=== PATIENT | female | born 1940 | race Caucasian/White ===

== ENCOUNTER → 2018-01-15 07:34 | Outpatient (CLI) | payer OTHER, SELFPAY ==
[2018-01-15 10:23] LABS: Cholesterol 196 mg/dL (140-199); HDL Cholesterol 45 mg/dL (40-60); LDL Cholesterol Calculated 116 mg/dL (<100); Triglycerides 174 mg/dL (35-150)
[2018-01-15 10:26] LABS: Thyroid Stimulating Hormone 3.01 uIU/mL (0.47-4.68)
[2018-01-15 10:42] LABS: Hematocrit 37.7 % (36-46); Mean Corpuscular HGB Conc 34.5 % (30-36); Mean Corpuscular Hemoglobin 31.1 PG (26-34); Mean Corpuscular Volume 90.2 fL (80-100); Red Blood Cell Count 4.18 X10^6/uL (4.0-5.2); White Blood Cell Count 5.3 X10^3/uL (4.5-11.0)
[2018-01-15 10:43] LABS: Add Manual Diff / Slide Review NO; Basophils Percent Auto 0.9 % (0-2); Eosinophils Percent Auto 2.2 % (2-4); Lymphocytes Percent Auto 34.3 % (25-40); Monocytes Percent Auto 9.7 % (3-14); Neutrophils Absolute Auto 2800 /uL (3000-5900); Neutrophils Percent Auto 52.9 % (50-75); Platelet Count 299 X10^3/uL (150-400); Red Cell Distribution Width 12.9 % (11.6-14.8)
[2018-01-15 14:12] LABS: Alanine Aminotransferase 29 IU/L (9-52); Albumin 4.2 g/dL (3.5-5.0); Albumin Globulin Ratio 1.4 (1.0-2.8); Alkaline Phosphatase 64 U/L (38-126); Aspartate Aminotransferase 32 IU/L (14-36); BUN Creatinine Ratio 22.5 (6-22); Bilirubin Total 0.4 mg/dL (0.2-1.3); Blood Urea Nitrogen 18 mg/dL (7-17); Calcium 9.3 mg/dL (8.4-10.2); Carbon Dioxide 32 mmol/L (22-32); Chloride 99 mmol/L (98-107); Estimated Glomerular Filt Rate > 60.0 mL/min (>60); Globulin 3.1 g/dL (1.7-4.1); Glucose 92 mg/dL (80-110); HEMOLYSIS < 15 (0-50); Potassium 4.8 mmol/L (3.4-5.1); Sodium 139 mmol/L (137-145); Total Protein 7.3 g/dL (6.3-8.2)
== END ==
PROVIDERS: PCP Internal Medicine; Visit Provider Internal Medicine Cardiovascular Disease
DX: I48.1 Persistent atrial fibrillation (principal); E78.5 Hyperlipidemia, unspecified; R09.89 Other specified symptoms and signs involving the circulatory and respiratory systems; Z79.01 Long term (current) use of anticoagulants; Z79.899 Other long term (current) drug therapy
CPT/HCPCS: 36415; 80053; 80061; 84443; 85025

== ENCOUNTER → 2018-03-13 13:38 | Oncology outpatient (ONC) | payer OTHER, SELFPAY ==
[2018-03-13] MEDS: ZOLEDRONIC ACID 5 MG in SODIUM CHLORIDE 0.9% 100 ML 318.75 ML IV (14:20)
[2018-03-13 14:25] VITALS: BP 127/51; PULSE 54; RESP 16; TEMP 36.9; O2SAT 100
== END ==
LOC: ONC 13:39
PROVIDERS: PCP Internal Medicine; Visit Provider Internal Medicine
DX: M81.0 Age-related osteoporosis without current pathological fracture (principal)
CPT/HCPCS: 96374; J3489

== ENCOUNTER 2018-04-22 22:34 | Emergency (ER) | payer OTHER, SELFPAY ==
[2018-04-22 22:35] VITALS: BP 174/74; PULSE 80; RESP 18; TEMP 36.4; O2SAT 100; BMI 22.3
--- NOTE | 2018-04-22 22:43 | ED.GENADULT ---
HPI - General Adult General Chief complaint: Arrhythmia/Palpitations Stated complaint: STATES A FIB WITH RVR Time Seen by Provider: 04/22/18 22:43 Source: patient Mode of arrival: ambulatory Limitations: no limitations History of Present Illness HPI narrative: 77-year-old female with a history of atrial fibrillation. States that she is now off her amiodarone under the advisement of her retail greeter. Is not currently taking any anti arrhythmic so. States that earlier this evening she had when she felt like was atrial fibrillation. She is here with her neighbor who is a retired anesthesiologist who stated that her heart rate was in the 150s. She states that she does have a prescription for Cardizem that she is supposed to take 60 mg if the symptoms come on per her retail greeter recommendation however she states that she has not filled this medication and did not have any at home. She states that it was a sudden onset. Not associated with chest pain or shortness of breath or lightheadedness. Lasted approximately 2 hr. States that it resolved when she arrived here in the emergency department. Related Data Home Medications Medication Instructions Recorded Confirmed ESTROGENS CONJUGATED VAG - 1 dose VAGINAL #0 04/19/09 10/15/17 (Premarin) acetaminophen ER 650 mg 650 mg PO ONCE 10/15/17 10/15/17 tablet,extended release dabigatran etexilate 150 mg capsule 150 mg PO BID 10/15/17 10/15/17 hydrocodone 5 mg-acetaminophen 325 1 tab PO Q6H PRN 10/15/17 10/15/17 mg tablet lorazepam 0.5 mg tablet 0.5 mg PO BEDTIME 10/15/17 10/15/17 rosuvastatin 5 mg tablet See Label Instructions .ROUTE 10/15/17 10/15/17 .COMPLEX valsartan 80 mg tablet 80 mg PO DAILY 10/15/17 10/15/17 Allergies Allergy/AdvReac Type Severity Reaction Status Date / Time No Known Drug Allergies Allergy Unknown Unverified 09/04/17 11:52 codeine AdvReac Intermediate N/V Verified 10/15/17 08:53 Review of Systems Constitutional Denies fever(s) and Denies headache(s) ENT Ears, Nose, Mouth, and Throat: Denies dizziness and Denies headache(s) Cardiovascular Denies chest pain, Reports rapid heart rate, Reports irregular heart rhythm, Reports palpitations and Denies dyspnea Respiratory Denies dyspnea Gastrointestinal Gastrointestinal: Denies abdominal pain, Denies nausea and Denies vomiting Musculoskeletal Denies myalgias and Denies arthralgias Integumentary/Breasts Denies rash Neurologic Denies dizziness and Denies headache(s) Endocrine Reports palpitations Hematologic/Lymphatic Comments: Is currently on anticoagulation for the AFib [facility], [facility] Medical History Atrial fibrillation (Acute) Hypertension (Acute) Surgical History No pertinent past surgical history (Acute) Social History lives independently: Yes Smoking Status: Former smoker Exam Initial Vital Signs Initial Vital Signs: Vital Signs Temperature 97.6 F 04/22/18 22:35 Pulse Rate 80 04/22/18 22:35 Respiratory Rate 18 04/22/18 22:35 Blood Pressure 174/74 H 04/22/18 22:35 Pulse Oximetry 100 04/22/18 22:35 Const General: cooperative, healthy appearing, comfortable, well developed, well groomed and No acute distress Orientation: alert, awake and oriented x3 HENMT Head: normal to inspection and normocephalic Resp Effort & Inspection: normal respiratory effort Auscultation: clear to auscultation bilaterally Cardio Rate: regular rate Rhythm: regular rhythm Heart Sounds: no murmurs Pulses: radial pulses present GI Inspection: non-distended Palpation: soft, No firm and No tender Skin Lesions: no lesions Rashes: no rashes Neuro General: alert, awake and oriented x3 Extrem General: normal to inspection and capillary refill normal Psych Appearance: grossly normal and well kempt Course Orders Ordered: Discontinued Medications Diltiazem HCl (Cardizem) 60 mg PO NOW ONE Stop: 04/22/18 23:08 Last Admin: 04/22/18 23:26 Dose: 60 mg Vital Signs - 8 hr 04/22/18 22:35 04/22/18 22:56 04/22/18 23:33 Temperature 97.6 F 97.6 F Pulse Rate 80 80 90 Respiratory Rate 18 18 15 Blood Pressure 174/74 H 174/74 H 161/62 H Pulse Oximetry 100 100 98 Medical Decision Making ECG Data Attestation: I personally reviewed and interpreted this ECG as follows: Prior ECG tracings: not available for review Interpretation: sinus rhythm ventricular rate is 79 normal axis normal intervals Normal QRS No ST T wave changes MDM Narrative Medical decision making narrative: patient does have a history of atrial fibrillation however is not in atrial fibrillation now. She is anticoagulated. She had no chest pain or shortness of breath or lightheadedness when the episodes were going on. will hold on further workup for now. Patient is asymptomatic. She was instructed she needed to fill that prescription for Cardizem. She was given return precautions. She expressed understanding and agreement this plan. Discharge Plan Departure Patient Disposition: Home Clinical Impression: Atrial fibrillation Discharge Date/Time: 04/22/18 23:35 Interventions: ED Discharge Assessment Last Done: 04/22/18 23:33 Instructions: DI for Atrial Fibrillation Activity Restrictions/Additional Instructions: recommend you take all of your medications as directed. Call your retail greeter and her primary care doctor for a follow-up. Return to the emergency department for any new or worsening symptoms Prescriptions: No Action valsartan 80 mg tablet 80 mg PO DAILY RF: 0 dabigatran etexilate [Pradaxa] 150 mg capsule 150 mg PO BID RF: 0 rosuvastatin [Crestor] 5 mg tablet See Patient Comments .ROUTE .COMPLEX RF: 0 hydrocodone-acetaminophen 5-325 mg tablet 1 tab PO Q6H PRN (Reason: pain) RF: 0 acetaminophen [Tylenol 8 Hour] 650 mg tablet extended release 650 mg PO ONCE RF: 0 lorazepam 0.5 mg tablet 0.5 mg PO BEDTIME RF: 0 ESTROGENS CONJUGATED VAG - (Premarin) 1 dose Vaginal Qty: 0 RF: 0
[2018-04-22 22:56] VITALS: BP 174/74; PULSE 80; RESP 18; TEMP 36.4; O2SAT 100; BMI 22.3
[2018-04-22] MEDS: dilTIAZem 30 MG TABLET 60 MG PO (23:26)
[2018-04-22 23:33] VITALS: BP 161/62; PULSE 90; RESP 15; O2SAT 98
== END 2018-04-22 23:35 | disposition home or self-care (01) ==
PROVIDERS: Emergency Provider Emergency Medicine; Family Provider Internal Medicine; PCP Internal Medicine
DX: I48.91 Unspecified atrial fibrillation (principal)
CPT/HCPCS: 93005; 93041; 99283

== ENCOUNTER → 2018-06-20 08:07 | Outpatient (CLI) | payer OTHER, SELFPAY ==
--- NOTE | 2018-06-20 | DI.MG.S_ITS ---
BILATERAL DIGITAL SCREENING MAMMOGRAM 3D/2D WITH CAD: 06/20/2018 CLINICAL: Routine screening. Comparison is made to exams dated: 06/13/2017 mammogram, 06/16/2015 mammogram, and 05/06/2014 mammogram - [facility]. The tissue of both breasts is heterogeneously dense. This may lower the sensitivity of mammography. Current study was also evaluated with a Computer Aided Detection (CAD) system. No significant masses, calcifications, or other findings are seen in either breast. There has been no significant interval change. IMPRESSION: NEGATIVE There is no mammographic evidence of malignancy. A 1 year screening mammogram is recommended. This exam was interpreted at Station ID: [id number]. NOTE: For mammograms, a report in lay terms will be sent to the patient. Approximately 15% of breast malignancies will not be visualized mammographically. In the management of a palpable breast mass, a negative mammogram must not discourage biopsy of a clinically suspicious lesion. Electronically Signed By: Doreen curtis/ahven:06/20/2018 09:39:01 letter sent: Normal Exam ACR BI-RADS Category 1: Negative 3341F
== END ==
PROVIDERS: Family Provider Internal Medicine; PCP Internal Medicine; Visit Provider Internal Medicine
DX: Z12.31 Encounter for screening mammogram for malignant neoplasm of breast (principal)
CPT/HCPCS: 77063; 77067

== ENCOUNTER → 2018-08-07 08:01 | Outpatient (CLI) | payer OTHER, SELFPAY ==
[2018-08-07 08:49] LABS: Add Manual Diff / Slide Review NO; Basophils Absolute Auto 0 /uL (0-100); Basophils Percent Auto 0.7 % (0-2); Eosinophils Absolute Auto 0 /uL (0-450); Eosinophils Percent Auto 1.1 % (2-4); Hematocrit 38.6 % (36-46); Hemoglobin 13.1 g/dL (12.0-16.0); Lymphocytes Absolute Auto 2000 /uL (1100-4500); Lymphocytes Percent Auto 43.6 % (25-40); Mean Corpuscular HGB Conc 33.9 % (30-36); Mean Corpuscular Hemoglobin 30.7 PG (26-34); Mean Corpuscular Volume 90.6 fL (80-100); Monocytes Absolute Auto 500 /uL (0-900); Monocytes Percent Auto 11.6 % (3-14); Neutrophils Absolute Auto 2000 /uL (1500-7000); Platelet Count 289 X10^3/uL (150-400); Red Blood Cell Count 4.26 X10^6/uL (4.0-5.2); White Blood Cell Count 4.6 X10^3/uL (4.5-11.0)
[2018-08-07 09:29] LABS: BUN Creatinine Ratio 17.1 (6-22); Blood Urea Nitrogen 12 mg/dL (7-17); Calcium 9.1 mg/dL (8.4-10.2); Carbon Dioxide 31 mmol/L (22-32); Chloride 100 mmol/L (98-107); Cholesterol 185 mg/dL (140-199); Estimated Glomerular Filt Rate > 60.0 mL/min (>60); Glucose 90 mg/dL (80-110); HDL Cholesterol 55 mg/dL (40-60); HEMOLYSIS < 15 (0-50); LDL Cholesterol Calculated 107 mg/dL (<100); Potassium 4.3 mmol/L (3.4-5.1); Sodium 138 mmol/L (137-145); Triglycerides 115 mg/dL (35-150)
== END ==
PROVIDERS: PCP Internal Medicine; Visit Provider Internal Medicine Cardiovascular Disease
DX: I10 Essential (primary) hypertension (principal); E78.5 Hyperlipidemia, unspecified
CPT/HCPCS: 36415; 80048; 80061; 85025

== ENCOUNTER → 2018-09-11 17:36 | Outpatient (CLI) | payer OTHER, SELFPAY ==
--- NOTE | 2018-09-11 | DI.MRI.S_ITS ---
PROCEDURE: MR KNEE RT WO CON INDICATIONS: UNSPECIFIED INTERNAL DERANGEMENT OF RIGHT KNEE TECHNIQUE: Noncontrast sagittal PD fast spin echo and T2 fast spin echo with fat saturation, sagittal 3-D FLASH with fat saturation; coronal T1 spin echo and PD fast spin echo with fat saturation, and axial PD fast spin echo with fat saturation through the knee. COMPARISON: None. FINDINGS: Image quality: Excellent. Menisci: Patient is status post medial femoral tibial compartment arthroplasty with susceptibility artifacts. There is no evidence of focal lateral meniscal tear. The meniscal root ligaments appear intact. Cruciate ligaments: The anterior and posterior cruciate ligaments appear intact. Medial structures: The medial collateral ligament appears intact. The posterior oblique ligament, semimembranosus tendon insertions, oblique popliteal ligament, and meniscocapsular junction appear intact. Visualized portions of the pes anserinus tendons appear normal. No abnormal bursal fluid. Lateral structures: The lateral collateral ligament, long and short heads of the biceps femoris tendon appear intact. The popliteus tendon appears normal; the popliteofibular ligament appears intact. The posterosuperior and anteroinferior popliteomeniscal fascicles appear intact. The arcuate and fabellofibular ligaments appear intact, on either side of the lateral inferior geniculate artery. Iliotibial band appears normal. Anterior structures: The quadriceps and patellar tendons appear intact. Patellar alignment is normal. No femoral trochlear dysplasia or ventral trochlear prominence. No edema in the infrapatellar fat pad. Bones and cartilage: Susceptibility artifact is noted in medial femoral tibial compartment and limits evaluation. No gross marrow edema. No fracture or dislocation. Mild to moderate osteophytic changes are noted in patellofemoral and lateral femorotibial compartments. Patella cartilage is grossly intact. Joint space: There is physiologic knee joint fluid. No Goodman's cyst. Normal appearing synovial plicae are incidentally noted. IMPRESSION: 1. Prior medial femoral tibial compartment arthroplasty. Mild to moderate osteophytic changes in patellofemoral compartment and lateral femorotibial compartment. No gross fracture or dislocation. 2. Cruciate ligaments are intact. No focal lateral meniscal tear. Dictated by: Graham Schultz M.D. on 09/12/2018 at 9:46 Approved by: Graham Schultz M.D. on 09/12/2018 at 10:02
== END ==
PROVIDERS: Family Provider Internal Medicine; PCP Internal Medicine; Visit Provider Orthopaedic Surgery
DX: M23.91 Unspecified internal derangement of right knee (principal); Z96.651 Presence of right artificial knee joint
CPT/HCPCS: 73721

== ENCOUNTER → 2019-02-10 12:10 | Outpatient (CLI) | payer OTHER, SELFPAY ==
--- NOTE | 2019-02-10 | DI.US.S_ITS ---
PROCEDURE: US CAROTID DOPPLER BI INDICATIONS: BRUITS TECHNIQUE: Color and pulse Doppler interrogation was performed of both carotid systems, with image documentation and velocity measurements. COMPARISON: [facility], US, US CAROTID BILATERAL, 11/26/2017, 11:10. [facility], US, US CAROTID DPLX DOPPLER BILAT, 10/08/2016, 10:22. FINDINGS: Stenosis calculations are based on SRU (Society of Radiologists in Ultrasound) criteria. The flow velocities and the arterial waveforms are normal within both carotid arterial systems. Atherosclerotic plaque is seen on both sides. The estimated degree of internal carotid artery stenosis is less than 50%. Antegrade flow is confirmed within both vertebral arteries. IMPRESSION: No hemodynamically significant stenosis is seen. No significant change from the prior. Atherosclerotic plaque is noted bilaterally. Dictated by: Frandy Montenegro M.D. on 02/10/2019 at 13:27 Approved by: Frandy Montenegro M.D. on 02/10/2019 at 13:28
== END ==
PROVIDERS: Family Provider Internal Medicine; PCP Internal Medicine; Visit Provider Internal Medicine Cardiovascular Disease
DX: I65.23 Occlusion and stenosis of bilateral carotid arteries (principal); R09.89 Other specified symptoms and signs involving the circulatory and respiratory systems
CPT/HCPCS: 93880

== ENCOUNTER → 2019-02-26 08:14 | Outpatient (CLI) | payer OTHER, SELFPAY ==
[2019-02-26 09:31] LABS: Add Manual Diff / Slide Review NO; Basophils Absolute Auto 0 /uL (0-100); Basophils Percent Auto 0.6 % (0-2); Eosinophils Absolute Auto 100 /uL (0-450); Eosinophils Percent Auto 1.2 % (2-4); Hematocrit 38.3 % (36-46); Lymphocytes Absolute Auto 1800 /uL (1100-4500); Lymphocytes Percent Auto 32.1 % (25-40); Mean Corpuscular HGB Conc 33.9 % (30-36); Mean Corpuscular Hemoglobin 30.6 PG (26-34); Mean Corpuscular Volume 90.1 fL (80-100); Monocytes Absolute Auto 400 /uL (0-900); Monocytes Percent Auto 7.9 % (3-14); Neutrophils Absolute Auto 3300 /uL (1500-7000); Neutrophils Percent Auto 58.2 % (50-75); Platelet Count 284 X10^3/uL (150-400); Red Blood Cell Count 4.25 X10^6/uL (4.0-5.2); White Blood Cell Count 5.6 X10^3/uL (4.5-11.0)
[2019-02-26 09:47] LABS: BUN Creatinine Ratio 26.7 (6-22); Blood Urea Nitrogen 16 mg/dL (7-17); Calcium 9.2 mg/dL (8.4-10.2); Carbon Dioxide 30 mmol/L (22-32); Chloride 101 mmol/L (98-107); Cholesterol 170 mg/dL (140-199); Estimated Glomerular Filt Rate > 60.0 mL/min (>60); Glucose 94 mg/dL (80-110); HDL Cholesterol 52 mg/dL (40-60); HEMOLYSIS < 15 (0-50); LDL Cholesterol Calculated 93 mg/dL (<100); Potassium 4.6 mmol/L (3.4-5.1); Sodium 142 mmol/L (137-145); Triglycerides 125 mg/dL (35-150)
== END ==
PROVIDERS: PCP Internal Medicine; Visit Provider Internal Medicine Cardiovascular Disease
DX: I10 Essential (primary) hypertension (principal); E78.5 Hyperlipidemia, unspecified
CPT/HCPCS: 36415; 80048; 80061; 85025

== ENCOUNTER → 2019-06-25 09:46 | Outpatient (CLI) | payer MEDICARE, SELFPAY ==
--- NOTE | 2019-06-25 | DI.MG.S_ITS ---
BILATERAL DIGITAL SCREENING MAMMOGRAM 3D/2D WITH CAD: 06/25/2019 CLINICAL: Routine screening. Comparison is made to exams dated: 06/20/2018 mammogram, 06/13/2017 mammogram, and 06/16/2015 mammogram - [facility]. The tissue of both breasts is heterogeneously dense. This may lower the sensitivity of mammography. Current study was also evaluated with a Computer Aided Detection (CAD) system. No significant masses, calcifications, or other findings are seen in either breast. There has been no significant interval change. IMPRESSION: NEGATIVE There is no mammographic evidence of malignancy. A 1 year screening mammogram is recommended. This exam was interpreted at Station ID: [id number]. NOTE: For mammograms, a report in lay terms will be sent to the patient. Approximately 15% of breast malignancies will not be visualized mammographically. In the management of a palpable breast mass, a negative mammogram must not discourage biopsy of a clinically suspicious lesion. Electronically Signed By: Doreen curtis/haven:06/25/2019 11:36:31 letter sent: Normal Exam ACR BI-RADS Category 1: Negative 3341F
== END ==
PROVIDERS: PCP Internal Medicine; Visit Provider Internal Medicine
DX: Z12.31 Encounter for screening mammogram for malignant neoplasm of breast (principal)
CPT/HCPCS: 77063; 77067

== ENCOUNTER → 2019-07-30 14:26 | Outpatient (ROUT) | payer MEDICARE, SELFPAY ==
[2019-07-30 14:45] LABS: Add Manual Diff / Slide Review NO; Basophils Absolute Auto 0 /uL (0-100); Basophils Percent Auto 0.6 % (0-2); Eosinophils Absolute Auto 0 /uL (0-450); Eosinophils Percent Auto 0.6 % (2-4); Hematocrit 39.9 % (36-46); Hemoglobin 13.5 g/dL (12.0-16.0); Lymphocytes Absolute Auto 2500 /uL (1100-4500); Mean Corpuscular HGB Conc 33.9 % (30-36); Mean Corpuscular Hemoglobin 30.9 PG (26-34); Mean Corpuscular Volume 91.1 fL (80-100); Monocytes Absolute Auto 500 /uL (0-900); Monocytes Percent Auto 7.4 % (3-14); Neutrophils Absolute Auto 3900 /uL (1500-7000); Neutrophils Percent Auto 55.4 % (50-75); Platelet Count 317 X10^3/uL (150-400); Red Blood Cell Count 4.37 X10^6/uL (4.0-5.2)
[2019-07-30 16:13] LABS: Alanine Aminotransferase 20 IU/L (<35); Albumin 4.5 g/dL (3.5-5.0); Albumin Globulin Ratio 1.5 (1.0-2.8); Alkaline Phosphatase 60 U/L (38-126); Aspartate Aminotransferase 31 IU/L (14-36); BUN Creatinine Ratio 26.7 (6-22); Bilirubin Total 0.3 mg/dL (0.2-1.3); Blood Urea Nitrogen 16 mg/dL (7-17); Calcium 9.7 mg/dL (8.4-10.2); Carbon Dioxide 30 mmol/L (22-32); Chloride 102 mmol/L (98-107); Cholesterol 208 mg/dL (140-199); Estimated Glomerular Filt Rate > 60.0 mL/min (>60); Glucose 90 mg/dL (80-110); HDL Cholesterol 55 mg/dL (40-60); HEMOLYSIS < 15 (0-50); LDL Cholesterol Calculated 123 mg/dL (<100); Potassium 5.1 mmol/L (3.4-5.1); Sodium 141 mmol/L (137-145); Total Protein 7.5 g/dL (6.3-8.2); Triglycerides 150 mg/dL (35-150)
[2019-07-30 16:41] LABS: TSH w/ Reflex to FT4 1.11 uIU/mL (0.47-4.68)
== END ==
PROVIDERS: PCP Internal Medicine; Visit Provider Internal Medicine
DX: R53.83 Other fatigue (principal); E78.2 Mixed hyperlipidemia
CPT/HCPCS: 80053; 80061; 84443; 85025

== ENCOUNTER → 2020-03-17 08:19 | Outpatient (CLI) | payer MEDICARE, SELFPAY ==
--- NOTE | 2020-03-17 | DI.US.S_ITS ---
PROCEDURE: US CAROTID DOPPLER BI INDICATIONS: BILATERAL CAROTID BRUITS TECHNIQUE: Color and pulse Doppler interrogation was performed of both carotid systems, with image documentation and velocity measurements. COMPARISON: [facility], [place], US CAROTID BILATERAL, 11/26/2017, 11:10. [facility], US, US CAROTID DPLX DOPPLER BILAT, 10/08/2016, 10:22. [facility], US, US CAROTID DOPPLER BI, 02/10/2019, 12:19. FINDINGS: Stenosis calculations are based on SRU (Society of Radiologists in Ultrasound) criteria. The flow velocities and the arterial waveforms are normal within both carotid arterial systems. Atherosclerotic plaque is seen on both sides. The estimated degree of internal carotid artery stenosis is less than 50%. Antegrade flow is confirmed within both vertebral arteries. IMPRESSION: No hemodynamically significant stenosis is seen. No significant progression compared to the prior. Atherosclerotic plaque is noted bilaterally. Dictated by: Frandy Montenegro M.D. on 03/17/2020 at 8:24 Approved by: Frandy Montenegro M.D. on 03/17/2020 at 8:25
== END ==
PROVIDERS: PCP Internal Medicine; Referring Provider Internal Medicine Cardiovascular Disease; Visit Provider Internal Medicine Cardiovascular Disease
DX: I65.23 Occlusion and stenosis of bilateral carotid arteries (principal); R09.89 Other specified symptoms and signs involving the circulatory and respiratory systems
CPT/HCPCS: 93880

== ENCOUNTER → 2020-03-25 07:43 | Outpatient (CLI) | payer MEDICARE, SELFPAY ==
[2020-03-25 08:14] LABS: Add Manual Diff / Slide Review NO; Basophils Absolute Auto 0 /uL (0-100); Basophils Percent Auto 0.6 % (0-2); Eosinophils Absolute Auto 100 /uL (0-450); Eosinophils Percent Auto 1.3 % (2-4); Hematocrit 36.8 % (36-46); Hemoglobin 12.1 g/dL (12.0-16.0); Lymphocytes Absolute Auto 2100 /uL (1100-4500); Lymphocytes Percent Auto 40.6 % (25-40); Mean Corpuscular Hemoglobin 30.3 PG (26-34); Mean Corpuscular Volume 91.9 fL (80-100); Monocytes Absolute Auto 400 /uL (0-900); Monocytes Percent Auto 8.2 % (3-14); Neutrophils Absolute Auto 2500 /uL (1500-7000); Neutrophils Percent Auto 49.3 % (50-75); Platelet Count 270 X10^3/uL (150-400); Red Blood Cell Count 4.01 X10^6/uL (4.0-5.2); Red Cell Distribution Width 12.8 % (11.6-14.8); White Blood Cell Count 5.1 X10^3/uL (4.5-11.0)
[2020-03-25 08:33] LABS: BUN Creatinine Ratio 32.3 (6-22); Blood Urea Nitrogen 21 mg/dL (7-17); Calcium 8.7 mg/dL (8.4-10.2); Carbon Dioxide 30 mmol/L (22-32); Chloride 103 mmol/L (98-107); Cholesterol 152 mg/dL (140-199); Estimated Glomerular Filt Rate > 60.0 mL/min (>60); Glucose 98 mg/dL (80-110); HDL Cholesterol 42 mg/dL (40-60); HEMOLYSIS < 15 (0-50); LDL Cholesterol Calculated 82 mg/dL (<100); Potassium 4.5 mmol/L (3.4-5.1); Sodium 138 mmol/L (137-145); Triglycerides 142 mg/dL (35-150)
== END ==
PROVIDERS: PCP Internal Medicine; Referring Provider Internal Medicine Cardiovascular Disease; Visit Provider Internal Medicine Cardiovascular Disease
DX: I10 Essential (primary) hypertension (principal); E78.5 Hyperlipidemia, unspecified
CPT/HCPCS: 36415; 80048; 80061; 85025

== ENCOUNTER 2020-07-02 08:16 | Emergency (ER) | payer OTHER, SELFPAY ==
[2020-07-02] VITALS (9 sets, daily range): BP systolic 144–169; BP diastolic 57–82; PULSE 59–75; RESP 16–18; TEMP 37.2; O2SAT 92–100; BMI 22.6
--- NOTE | 2020-07-02 08:29 | ED_ITS ---
HPI - General Adult General Chief complaint: Abdominal Pain Stated complaint: RIGHT UPPER QUAD PAIN Time Seen by Provider: 07/02/20 08:18 Source: patient Mode of arrival: Ambulatory Limitations: no limitations History of Present Illness HPI narrative: Patient is a 79-year-old female here for evaluation of right uppe r quadrant abdominal pain. States the symptoms started approximately 1 week ago after she ate a fried pork chop. She has never had any pain like this in the past. It was a fairly sudden onset sharp pain. She contacted her primary doctor's office who suggested that she come and get evaluated with a ultrasound. She states that the symptoms improved/resolved and has only occasionally happened over the past week until this morning she woke up with the same pain and right upper quadrant. No nausea vomiting. No fevers. She also had diarrhea over the past 24 hours. Related Data Home Medications Medication Instructions Recorded Confirmed ESTROGENS CONJUGATED VAG - 1 dose VAGINAL #0 04/19/09 10/15/17 (Premarin) acetaminophen 650 mg 650 mg PO ONCE 10/15/17 10/15/17 tablet,extended release dabigatran etexilate 150 mg capsule 150 mg PO BID 10/15/17 10/15/17 hydrocodone 5 mg-acetaminophen 325 1 tab PO Q6H PRN 10/15/17 10/15/17 mg tablet lorazepam 0.5 mg tablet 0.5 mg PO BEDTIME 10/15/17 10/15/17 rosuvastatin 5 mg tablet See Rx Instructions .ROUTE .COMPLEX 10/15/17 10/15/17 valsartan 80 mg tablet 80 mg PO DAILY 10/15/17 10/15/17 Allergies Allergy/AdvReac Type Severity Reaction Status Date / Time No Known Drug Allergies Allergy Unknown Verified 07/02/20 08:34 codeine AdvReac Intermediate N/V Verified 07/02/20 08:34 Review of Systems Constitutional Constitutional: Denies fever(s) Cardiovascular Cardiovascular: Denies chest pain and Denies dyspnea Respiratory Respiratory: Denies dyspnea Gastrointestinal Gastrointestinal: Reports abdominal pain, Reports diarrhea, Denies nausea and Denies vomiting Genitourinary Genitourinary: Denies dysuria Genitourinary: Denies dysuria Musculoskeletal Musculoskeletal: Denies arthralgias and Denies myalgias Integumentary/Breasts Skin/Breast: Denies lesions and Denies rash Neurologic Neurologic: Denies behavioral changes Psychiatric Psychiatric: Denies behavioral changes Hematologic/Lymphatic On Anticoagulants: No Allergic/Immunologic Allergic/Immunologic: Denies urticaria Patient History Medical History Atrial fibrillation Hypertension Surgical History (Updated 04/23/18 @ 02:54 by Chacorta Griffin DO) No pertinent past surgical history Social History lives independently: Yes Smoking Status: Former smoker Smoking Status: Former smoker Substance Use Type: does not use Exam Initial Vital Signs Initial Vital Signs: Vital Signs Temperature 99 F 07/02/20 08:20 Pulse Rate 71 07/02/20 08:20 Respiratory Rate 18 07/02/20 08:20 Blood Pressure 163/67 H 07/02/20 08:20 Pulse Oximetry 99 07/02/20 08:20 Const General: cooperative and comfortable HENMT Head: normal to inspection and normocephalic Resp Effort & Inspection: normal respiratory effort Auscultation: clear to auscultation bilaterally Cardio Rate: regular rate Rhythm: regular rhythm GI Inspection: non-distended Palpation: soft, No firm and No tender (Very minimal if any tenderness right upper quadrant) Back/Spine/Pelvis Back: No CVA tenderness Skin Lesions: no lesions Rashes: no rashes Neuro General: patient alert and patient awake Cognition: normal cognition Speech: speech normal Extrem General: normal to inspection and capillary refill normal Psych Appearance: grossly normal and well kempt Course Orders Ordered: ED Orders 07/02/20 08:25 Complete Blood Count AUTO DIFF Stat Comprehensive Metabolic Panel Stat Lipase Stat 07/02/20 08:28 US abdomen limited Stat 07/02/20 09:55 CT abdomen pelvis w con Stat Discontinued Medications Sodium Chloride (Normal Saline 0.9%) 1,000 mls @ 1,000 mls/hr IV BOLUS ONE Stop: 07/02/20 10:54 Last Admin: 07/02/20 10:02 Dose: 1,000 mls/hr Documented by: NAZANIN Vital Signs Vital signs: Vital Signs - 8 hr 07/02/20 08:20 Temperature 99 F Pulse Rate 71 Respiratory Rate 18 Blood Pressure 163/67 H Pulse Oximetry 99 Medical Decision Making Lab Data Lab results reviewed: Yes I reviewed the patient's lab results. Result diagrams: 07/02/20 08:25 07/02/20 08:25 Labs: Lab Results 07/02/20 07/02/20 Range/Units 08:25 08:25 WBC 6.4 (4.5-11.0) X10^3/uL RBC 4.38 (4.0-5.2) X10^6/uL Hgb 13.3 (12.0-16.0) g/dL Hct 39.3 (36-46) % MCV 89.8 (80-100) fL MCH 30.3 (26-34) PG MCHC 33.7 (30-36) % RDW 13.0 (11.6-14.8) % Plt Count 292 (150-400) X10^3/uL Neut % (Auto) 47.8 L (50-75) % Lymph % (Auto) 40.5 H (25-40) % Storey % (Auto) 10.1 (3-14) % Eos % (Auto) 0.9 L (2-4) % Baso % (Auto) 0.7 (0-2) % Neut # (Auto) 3100 (0762-0634) /uL Lymph # (Auto) 2600 (6286-1509) /uL Storey # (Auto) 600 (0-900) /uL Eos # (Auto) 100 (0-450) /uL Baso # (Auto) 0 (0-100) /uL Sodium 137 (137-145) mmol/L Potassium 4.2 (3.4-5.1) mmol/L Chloride 103 (98-107) mmol/L Carbon Dioxide 29 (22-32) mmol/L BUN 18 H (7-17) mg/dL Creatinine 0.64 (0.52-1.04) mg/dL Estimated GFR > 60.0 (>60) mL/min BUN/Creatinine Ratio 28.1 H (6-22) Glucose 103 (80-110) mg/dL Calcium 9.4 (8.4-10.2) mg/dL Total Bilirubin 0.3 (0.2-1.3) mg/dL AST 30 (14-36) IU/L ALT 20 (<35) IU/L Alkaline Phosphatase 70 (38-126) U/L Total Protein 7.4 (6.3-8.2) g/dL Albumin 4.2 (3.5-5.0) g/dL Globulin 3.2 (1.7-4.1) g/dL Albumin/Globulin Ratio 1.3 (1.0-2.8) Lipase 121 (23-300) U/L Imaging Data US - abdomen: Radiologist's Impression: [address] [id number] ReportSigned Patient: Sandra Koo JMR#: [id number]: 1940cct:[id number]/Sex: 79 / FDate of Service: 07/02/20Loc: EDAccession Number: [id number] Procedure: US abdomen limited Ordering Provider: Chacorta Griffin D.O. PROCEDURE: US ABDOMEN LIMITED INDICATIONS: EVALUATE GALLBLADDER TECHNIQUE: Real-time scanning was performed of the abdominal and retroperitoneal organs, with image documentation. COMPARISON: None. FINDINGS: Liver: Liver is normal in size and homogeneous in echotexture. Gallbladder: Normal in appearance without evidence of stone, wall thickening, or pericholecystic fluid. Biliary ducts: Intrahepatic bile ducts are non-dilated. Extrahepatic bile duct caliber measures 6.7 mm. Normal is 6-7 mm or less in diameter, or 10 mm or less post-cholecystectomy. Pancreas: Visualized portions of the pancreas are sonographically normal. Miscellaneous: No free abdominal fluid. Portal vein is normal in size and patent. IMPRESSION: Unremarkable right upper quadrant ultrasound. Dictated by: Negrito Gu D.O. on 07/02/2020 at 8:37 Approved by: Negrito Gu D.O. on 07/02/2020 at 8:40 CT scan - abdomen/pelvis: Radiologist's Impression: [address] [id number] Scan ReportSigned Patient: Sandra Koo JMR#: [id number]: 3Acct:[id number]/Sex: 79 / FDate of Service: 07/02/20Loc: EDAccession Number: [id number] Procedure: CT abdomen pelvis w con Ordering Provider: Chacorta Griffin D.O. PROCEDURE: CT ABDOMEN PELVIS W CON INDICATIONS: RUQ ABD pain TECHNIQUE: After the administration of intravenous contrast, 5 mm thick sections acquired from the diaphragm to the symphysis. 5 mm coronal and sagittal reformats were acquired. For radiation dose reduction, the following was used: automated exposure control, adjustment of mA and/or kV according to patient size. COMPARISON: [facility], , ABDOMEN LIMITED, 07/02/2020, 9:06. FINDINGS: Image quality: Study is predominantly within the late arterial phase and not the portal venous phase. Mid to lower abdomen is somewhat limited given hardware from spinal hardware. ABDOMEN: Lung bases: Calcified granuloma within the right lower lobe. There is a 5 m illimeter solid nodule within the anterior aspect of the right lower lobe (series 3, image 4). Mild basilar atelectasis. Heart size is within normal limits. No pericardial effusion. Solid organs: Liver is normal in size and enhancement. Gallbladder unremarkable Biliary system is non dilated. Pancreas enhances normally. There is a 4 millimeter hypodensity within the neck of the pancreas (series 2, image 29 and 28). No significant ductal dilation. Spleen is normal in size and enhancement. No adrenal nodules. Kidneys demonstrate normal size and enhancement, without hydronephrosis. Peritoneum and bowel: Bowel loops demonstrate normal wall thickness and caliber. No free fluid or air. Oobl-rc-[id number] stool burden. Fluid density cystic lesion likely within the wall of the 2nd portion of the duodenum measuring 1 centimeter in greatest diameter. This is of unlikely clinical significance. Nodes and vessels: No retroperitoneal or mesenteric adenopathy by size criteria. Aorta and inferior vena cava are normal in size. Diffuse vascular calcifications. Miscellaneous: No ventral hernias. PELVIS: Genitourinary: Bladder wall thickness is normal. Miscellaneous: No inguinal hernias or adenopathy. Bones: No suspicious bony lesions. Postsurgical changes of posterior fusion of L4-L5 without evidence of hardware complication. Postsurgical changes of the left hip without evidence of hardware complication. There is posttraumatic changes of the left pelvis. No vertebral body compression fractures. IMPRESSION: No acute intra-abdominal/pelvic abnormality. 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 Recommend outpatient MRI with MRCP for further evaluation. Other chronic findings as above Dictated by: Negrito Gu D.O. on 07/02/2020 at 9:42 Approved by: Negrito Gu D.O. on 07/02/2020 at 9:53 MDM Narrative Medical decision making narrative: Patient's labs are unremarkable. Her right upper quadrant ultrasound is unremarkable. The CT scan shows a pancreatic cyst however no other acute pathology. Unsure of the exact etiology of the patient's symptoms however feel that is unlikely the cyst. No signs of surgical pathology. No signs of infectious issues. I did discuss this with the patient. Informed her that she needed talk with her primary doctor about further evaluation of this cyst and she was given return precautions. She expressed understanding and agreement. Discharge Plan Departure Patient Disposition: Home Clinical Impression: Abdominal pain, Cyst of pancreas Instructions: DI for Abdominal Pain-Adult Activity Restrictions/Additional Instructions: Recommend that you talk with your primary doctor about the incidental finding of the pancreatic cyst seen on the CT scan today. They recommend that you have a special type of MRI that can be ordered as an outpatient. There are no signs of surgical issues or infectious issues on your exam today. Continue all of your medications as directed. Contact her primary provider for a follow-up. Return to the emergency department for any new or worsening symptoms Prescriptions: No Action valsartan 80 mg tablet 80 mg PO DAILY RF: 0 dabigatran etexilate [Pradaxa] 150 mg capsule 150 mg PO BID RF: 0 rosuvastatin [Crestor] 5 mg tablet See Rx Instructions .ROUTE .COMPLEX RF: 0 hydrocodone-acetaminophen 5-325 mg tablet 1 tab PO Q6H PRN (Reason: pain) RF: 0 acetaminophen [Tylenol 8 Hour] 650 mg tablet extended release 650 mg PO ONCE RF: 0 lorazepam 0.5 mg tablet 0.5 mg PO BEDTIME RF: 0 ESTROGENS CONJUGATED VAG - (Premarin) 1 dose Vaginal Qty: 0 RF: 0 Referrals: Drew Adams MD [Primary Care Provider] -
[2020-07-02 08:35] LABS: Add Manual Diff / Slide Review NO; Basophils Absolute Auto 0 /uL (0-100); Basophils Percent Auto 0.7 % (0-2); Eosinophils Absolute Auto 100 /uL (0-450); Eosinophils Percent Auto 0.9 % (2-4); Hematocrit 39.3 % (36-46); Hemoglobin 13.3 g/dL (12.0-16.0); Lymphocytes Absolute Auto 2600 /uL (1100-4500); Lymphocytes Percent Auto 40.5 % (25-40); Mean Corpuscular HGB Conc 33.7 % (30-36); Mean Corpuscular Hemoglobin 30.3 PG (26-34); Mean Corpuscular Volume 89.8 fL (80-100); Monocytes Absolute Auto 600 /uL (0-900); Monocytes Percent Auto 10.1 % (3-14); Neutrophils Absolute Auto 3100 /uL (1500-7000); Neutrophils Percent Auto 47.8 % (50-75); Platelet Count 292 X10^3/uL (150-400); Red Blood Cell Count 4.38 X10^6/uL (4.0-5.2); White Blood Cell Count 6.4 X10^3/uL (4.5-11.0)
[2020-07-02 08:45] LABS: Alanine Aminotransferase 20 IU/L (<35); Albumin 4.2 g/dL (3.5-5.0); Albumin Globulin Ratio 1.3 (1.0-2.8); Alkaline Phosphatase 70 U/L (38-126); Aspartate Aminotransferase 30 IU/L (14-36); BUN Creatinine Ratio 28.1 (6-22); Bilirubin Total 0.3 mg/dL (0.2-1.3); Blood Urea Nitrogen 18 mg/dL (7-17); Calcium 9.4 mg/dL (8.4-10.2); Carbon Dioxide 29 mmol/L (22-32); Chloride 103 mmol/L (98-107); Estimated Glomerular Filt Rate > 60.0 mL/min (>60); Globulin 3.2 g/dL (1.7-4.1); Glucose 103 mg/dL (80-110); HEMOLYSIS < 15 (0-50); Lipase 121 U/L (23-300); Potassium 4.2 mmol/L (3.4-5.1); Sodium 137 mmol/L (137-145); Total Protein 7.4 g/dL (6.3-8.2)
--- NOTE | 2020-07-02 09:55 | DI.CT.S_ITS ---
PROCEDURE: CT ABDOMEN PELVIS W CON INDICATIONS: RUQ ABD pain TECHNIQUE: After the administration of intravenous contrast, 5 mm thick sections acquired from the diaphragm to the symphysis. 5 mm coronal and sagittal reformats were acquired. For radiation dose reduction, the following was used: automated exposure control, adjustment of mA and/or kV according to patient size. COMPARISON: [facility], , US ABDOMEN LIMITED, 07/02/2020, 9:06. FINDINGS: Image quality: Study is predominantly within the late arterial phase and not the portal venous phase. Mid to lower abdomen is somewhat limited given hardware from spinal hardware. ABDOMEN: Lung bases: Calcified granuloma within the right lower lobe. There is a 5 millimeter solid nodule within the anterior aspect of the right lower lobe (series 3, image 4). Mild basilar atelectasis. Heart size is within normal limits. No pericardial effusion. Solid organs: Liver is normal in size and enhancement. Gallbladder unremarkable Biliary system is non dilated. Pancreas enhances normally. There is a 4 millimeter hypodensity within the neck of the pancreas (series 2, image 29 and 28). No significant ductal dilation. Spleen is normal in size and enhancement. No adrenal nodules. Kidneys demonstrate normal size and enhancement, without hydronephrosis. Peritoneum and bowel: Bowel loops demonstrate normal wall thickness and caliber. No free fluid or air. Xyou-st-eoizpupq stool burden. Fluid density cystic lesion likely within the wall of the 2nd portion of the duodenum measuring 1 centimeter in greatest diameter. This is of unlikely clinical significance. Nodes and vessels: No retroperitoneal or mesenteric adenopathy by size criteria. Aorta and inferior vena cava are normal in size. Diffuse vascular calcifications. Miscellaneous: No ventral hernias. PELVIS: Genitourinary: Bladder wall thickness is normal. Miscellaneous: No inguinal hernias or adenopathy. Bones: No suspicious bony lesions. Postsurgical changes of posterior fusion of L4-L5 without evidence of hardware complication. Postsurgical changes of the left hip without evidence of hardware complication. There is posttraumatic changes of the left pelvis. No vertebral body compression fractures. IMPRESSION: No acute intra-abdominal/pelvic abnormality. 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 Recommend outpatient MRI with MRCP for further evaluation. Other chronic findings as above Dictated by: Negrito Gu D.O. on 07/02/2020 at 9:42 Approved by: Negrito Gu D.O. on 07/02/2020 at 9:53
[2020-07-02] MEDS: SODIUM CHLORIDE 0.9% 1,000 ML 1000 ML IV (10:02)
== END 2020-07-02 11:43 | disposition home or self-care (01) ==
PROVIDERS: Emergency Provider Emergency Medicine; PCP Internal Medicine
DX: R10.11 Right upper quadrant pain (principal); K86.2 Cyst of pancreas; R19.7 Diarrhea, unspecified; I48.91 Unspecified atrial fibrillation; I10 Essential (primary) hypertension
CPT/HCPCS: 36415; 74177; 76705; 80053; 83690; 85025; 96360; 99283; 99284; Q9967

== ENCOUNTER → 2020-07-15 08:16 | Outpatient (CLI) | payer OTHER, SELFPAY ==
--- NOTE | 2020-07-15 | DI.MG.S_ITS ---
BILATERAL DIGITAL SCREENING MAMMOGRAM 3D/2D WITH CAD: 07/15/2020 CLINICAL: Routine screening. Comparison is made to exams dated: 06/25/2019 mammogram, 06/20/2018 mammogram, and 06/13/2017 mammogram - [facility]. The tissue of both breasts is heterogeneously dense. This may lower the sensitivity of mammography. Current study was also evaluated with a Computer Aided Detection (CAD) system. No significant masses, calcifications, or other findings are seen in either breast. There has been no significant interval change. IMPRESSION: NEGATIVE There is no mammographic evidence of malignancy. A 1 year screening mammogram is recommended. This exam was interpreted at Station ID: [id number]. NOTE: For mammograms, a report in lay terms will be sent to the patient. Approximately 15% of breast malignancies will not be visualized mammographically. In the management of a palpable breast mass, a negative mammogram must not discourage biopsy of a clinically suspicious lesion. Electronically Signed By: Sai quezada/haevn:07/15/2020 09:00:23 letter sent: Normal Exam ACR BI-RADS Category 1: Negative 3341F
== END ==
PROVIDERS: PCP Internal Medicine; Referring Provider Internal Medicine; Visit Provider Internal Medicine
DX: Z12.31 Encounter for screening mammogram for malignant neoplasm of breast (principal)
CPT/HCPCS: 77063; 77067

== ENCOUNTER → 2020-07-22 13:34 | Outpatient (CLI) | payer OTHER, SELFPAY ==
--- NOTE | 2020-07-22 13:39 | DI.RAD.S_ITS ---
PROCEDURE: XR DEXA AXIAL SKELETON INDICATIONS: AGE RELATED OSTEOPOROSIS COMPARISON: None. FINDINGS: This blank DEXA report has been sent in error by the PACS system. The correct and complete report will be forthcoming in 1-2 days. Thank you for your patience and understanding. Dictated by: Frances Calderon MD, PhD on 07/22/2020 at 17:28 Approved by: Frances Calderon MD, PhD on 07/22/2020 at 17:28
== END ==
PROVIDERS: PCP Internal Medicine; Referring Provider Internal Medicine; Visit Provider Internal Medicine
DX: M81.0 Age-related osteoporosis without current pathological fracture (principal); Z78.0 Asymptomatic menopausal state; Z90.722 Acquired absence of ovaries, bilateral; Z82.62 Family history of osteoporosis; Z87.891 Personal history of nicotine dependence
CPT/HCPCS: 77080

== ENCOUNTER → 2020-07-25 09:38 | Outpatient (CLI) | payer OTHER, SELFPAY ==
--- NOTE | 2020-07-25 09:40 | DI.MRI.S_ITS ---
PROCEDURE: MR ABDOMEN WO CON INDICATIONS: Neoplasm of unspecified behavior of digestive system TECHNIQUE: Coronal HASTE through the abdomen, axial 2-D FLASH in- and fse-fq-qtsex, and breath-hold T2 FSE with fat saturation through the biliary system and pancreas. Oblique coronal and axial thin-slice HASTE, radial thick-slab HASTE centered on the extrahepatic bile ducts. COMPARISON: [facility], CT, CT ABDOMEN PELVIS W CON, 07/02/2020, 10:13. FINDINGS: Image quality: There is mild motion artifact and magnetic susceptibility artifact in the lower lumbar spine. Pancreas and biliary system: Gallbladder demonstrates no gallstones or wall thickening. Intra- and extra-hepatic biliary ducts are non dilated. No definite filling defect in the distal common bile duct to suggest choledocholithiasis. Pancreas is normal in morphology, without adjacent soft tissue edema. Pancreatic duct is normal in caliber, without developmental anomalies. No discrete pancreatic mass or cyst identified. There is a small intraluminal cyst in the 3rd portion of the duodenum measuring up to 1.1 x 1.0 x 0.7 cm. Other solid organs: Noncontrast evaluation of the liver demonstrates no discrete mass. Spleen is normal in size. No adrenal nodules. Kidneys demonstrate no hydronephrosis. Nodes and vessels: No retroperitoneal or mesenteric adenopathy by size criteria. Aorta and inferior vena cava are normal in size. Bowel and peritoneum: Visualized bowel loops are normal in caliber. No free fluid. Lung bases: No basal pleural effusions. Heart size is normal. Bones and soft tissues: No ventral hernias. Bone marrow is of normal overall signal. IMPRESSION: 1. No discrete pancreatic mass or cyst visualized. 2. No biliary ductal dilatation or definite evidence of choledocholithiasis. No cholelithiasis. 3. Small nonspecific intraluminal cyst within the 3rd portion of the duodenum without evidence of associated obstruction. Dictated by: Omar Miranda M.D. on 07/25/2020 at 17:22 Approved by: Omar Miranda M.D. on 07/25/2020 at 17:38
== END ==
PROVIDERS: PCP Internal Medicine; Referring Provider Internal Medicine; Visit Provider Internal Medicine
DX: D49.0 Neoplasm of unspecified behavior of digestive system (principal); K63.89 Other specified diseases of intestine
CPT/HCPCS: 74181

== ENCOUNTER → 2021-03-08 09:32 | Outpatient (CLI) | payer OTHER, SELFPAY ==
[2021-03-08 10:02] LABS: Add Manual Diff / Slide Review NO; Basophils Absolute Auto 0 /uL (0-100); Basophils Percent Auto 0.6 % (0-2); Eosinophils Absolute Auto 100 /uL (0-450); Eosinophils Percent Auto 1.2 % (2-4); Hematocrit 37.2 % (36-46); Hemoglobin 12.3 g/dL (12.0-16.0); Lymphocytes Absolute Auto 2100 /uL (1100-4500); Lymphocytes Percent Auto 42.8 % (25-40); Mean Corpuscular HGB Conc 33.2 % (30-36); Mean Corpuscular Hemoglobin 29.9 PG (26-34); Mean Corpuscular Volume 90.2 fL (80-100); Monocytes Absolute Auto 400 /uL (0-900); Monocytes Percent Auto 8.7 % (3-14); Neutrophils Absolute Auto 2300 /uL (1500-7000); Neutrophils Percent Auto 46.7 % (50-75); Platelet Count 277 X10^3/uL (150-400); Red Blood Cell Count 4.12 X10^6/uL (4.0-5.2)
[2021-03-08 10:26] LABS: BUN Creatinine Ratio 23.5 (6-22); Blood Urea Nitrogen 16 mg/dL (7-17); Calcium 9.1 mg/dL (8.4-10.2); Carbon Dioxide 30 mmol/L (22-32); Chloride 101 mmol/L (98-107); Cholesterol 178 mg/dL (140-199); Estimated Glomerular Filt Rate > 60.0 mL/min (>60); Glucose 89 mg/dL (80-110); HDL Cholesterol 57 mg/dL (40-60); HEMOLYSIS < 15 (0-50); LDL Cholesterol Calculated 94 mg/dL (<100); Potassium 4.8 mmol/L (3.4-5.1); Sodium 138 mmol/L (137-145); Triglycerides 136 mg/dL (35-150)
== END ==
PROVIDERS: PCP Internal Medicine; Referring Provider Internal Medicine Cardiovascular Disease; Visit Provider Internal Medicine Cardiovascular Disease
DX: I10 Essential (primary) hypertension (principal); E78.5 Hyperlipidemia, unspecified
CPT/HCPCS: 36415; 80048; 80061; 85025

== ENCOUNTER → 2021-07-18 10:19 | Outpatient (CLI) | payer OTHER, SELFPAY ==
--- NOTE | 2021-07-18 | DI.MG.S_ITS ---
BILATERAL DIGITAL SCREENING MAMMOGRAM 3D/2D WITH CAD: 07/18/2021 CLINICAL: Routine screening. Comparison is made to exams dated: 07/15/2020 mammogram, 06/25/2019 mammogram, 06/20/2018 mammogram, and 06/16/2015 mammogram - [facility]. The tissue of both breasts is heterogeneously dense. This may lower the sensitivity of mammography. Current study was also evaluated with a Computer Aided Detection (CAD) system. No significant masses, calcifications, or other findings are seen in either breast. There has been no significant interval change. IMPRESSION: NEGATIVE There is no mammographic evidence of malignancy. A 1 year screening mammogram is recommended. This exam was interpreted at Station ID: [id number]. NOTE: For mammograms, a report in lay terms will be sent to the patient. Approximately 15% of breast malignancies will not be visualized mammographically. In the management of a palpable breast mass, a negative mammogram must not discourage biopsy of a clinically suspicious lesion. Electronically Signed By: Sai quezada/haven:07/18/2021 13:32:54 letter sent: Normal Exam ACR BI-RADS Category 1: Negative [id number]
== END ==
PROVIDERS: PCP Internal Medicine; Referring Provider Internal Medicine; Visit Provider Internal Medicine
DX: Z12.31 Encounter for screening mammogram for malignant neoplasm of breast (principal)
CPT/HCPCS: 77063; 77067

== ENCOUNTER → 2021-09-25 08:07 | Outpatient (CLI) | payer MEDICARE, SELFPAY ==
[2021-09-25 09:47] LABS: Hematocrit 36.9 % (36-46); Hemoglobin 12.6 g/dL (12.0-16.0); Mean Corpuscular HGB Conc 34.1 % (30-36); Mean Corpuscular Hemoglobin 30.3 PG (26-34); Mean Corpuscular Volume 88.9 fL (80-100); Platelet Count 308 X10^3/uL (150-400); Red Blood Cell Count 4.15 X10^6/uL (4.0-5.2); Red Cell Distribution Width 12.8 % (11.6-14.8); White Blood Cell Count 4.8 X10^3/uL (4.5-11.0)
[2021-09-25 10:34] LABS: Alanine Aminotransferase 19 IU/L (<35); Albumin 3.9 g/dL (3.5-5.0); Albumin Globulin Ratio 1.3 (1.0-2.8); Alkaline Phosphatase 76 U/L (38-126); Aspartate Aminotransferase 28 IU/L (14-36); BUN Creatinine Ratio 22.9 (6-22); Bilirubin Total 0.4 mg/dL (0.2-1.3); Blood Urea Nitrogen 16 mg/dL (7-17); Calcium 8.7 mg/dL (8.4-10.2); Carbon Dioxide 32 mmol/L (22-32); Chloride 103 mmol/L (98-107); Cholesterol 183 mg/dL (140-199); Estimated Glomerular Filt Rate > 60 mL/min (>60); Globulin 2.9 g/dL (1.7-4.1); Glucose 98 mg/dL (80-110); HDL Cholesterol 52 mg/dL (40-60); HEMOLYSIS < 15 (0-50); LDL Cholesterol Calculated 92 mg/dL (<100); Potassium 4.8 mmol/L (3.4-5.1); Sodium 140 mmol/L (137-145); Total Protein 6.8 g/dL (6.3-8.2); Triglycerides 196 mg/dL (35-150)
[2021-09-25 11:03] LABS: TSH w/ Reflex to FT4 1.98 uIU/mL (0.47-4.68)
== END ==
PROVIDERS: PCP Internal Medicine; Referring Provider Internal Medicine; Visit Provider Internal Medicine
DX: E78.2 Mixed hyperlipidemia (principal); I48.0 Paroxysmal atrial fibrillation
CPT/HCPCS: 36415; 80053; 80061; 84443; 85027

== ENCOUNTER 2022-03-26 13:12 | Emergency (ER) | payer MEDICARE, SELFPAY ==
[2022-03-26] VITALS (23 sets, daily range): BP systolic 88–142; BP diastolic 50–66; PULSE 52–136; RESP 13–30; TEMP 36.7; O2SAT 91–99; BMI 22.3
--- NOTE | 2022-03-26 13:27 | DI.RAD.S_ITS ---
PROCEDURE: XR CHEST 1V INDICATIONS: chest pain TECHNIQUE: One view of the chest was acquired. COMPARISON: [facility], , CHEST 1 VIEW, 04/09/2015, 20:06. FINDINGS: Surgical changes and devices: None. Lungs and pleura: Lungs are clear. No pleural effusions or pneumothorax. Mediastinum: Mediastinal contours appear normal. Heart size is mildly enlarged Bones and chest wall: No suspicious bony lesions. Overlying soft tissues appear unremarkable. IMPRESSION: No acute pulmonary process. Dictated by: Zayra Schroeder M.D. on 03/26/2022 at 13:46 Approved by: Zayra Schroeder M.D. on 03/26/2022 at 13:47
[2022-03-26 14:02] LABS: Add Manual Diff / Slide Review NO; Basophils Absolute Auto 0 /uL (0-100); Basophils Percent Auto 0.5 % (0-2); Eosinophils Absolute Auto 0 /uL (0-450); Eosinophils Percent Auto 0.5 % (2-4); Hematocrit 41.3 % (36-46); Lymphocytes Absolute Auto 2200 /uL (1100-4500); Lymphocytes Percent Auto 27.4 % (25-40); Mean Corpuscular HGB Conc 33.9 % (30-36); Mean Corpuscular Hemoglobin 30.7 PG (26-34); Mean Corpuscular Volume 90.4 fL (80-100); Monocytes Absolute Auto 500 /uL (0-900); Monocytes Percent Auto 6.3 % (3-14); Neutrophils Absolute Auto 5200 /uL (1500-7000); Neutrophils Percent Auto 65.3 % (50-75); Platelet Count 332 X10^3/uL (150-400); Red Blood Cell Count 4.57 X10^6/uL (4.0-5.2); Red Cell Distribution Width 12.9 % (11.6-14.8)
--- NOTE | 2022-03-26 14:05 | ED_ITS ---
HPI - Chest Pain General Chief Complaint: Chest Pain Stated Complaint: afib 113-129 since 9:30pm, N, unsteady on feet Time Seen by Provider: 03/26/22 13:31 Mode of arrival: Family Vehicle History of Present Illness HPI narrative: 81-year-old female former smoker with history of paroxysmal atrial fibrillation on Eliquis presents with a chief complaint of AFib with a rapid rate as high as the 130 since 9:30 p.m. She is had chest pain and feels fatigued and unwell. She denies any medication changes or dietary change. She states that she has been on Eliquis for a few years and has not missed any doses. She has not been cardioverted in some time but states that it was unsuccessful the last time they tried. She is managed by Cardiology in [place]. Related Data Home Medications Medication Instructions Recorded Confirmed ESTROGENS CONJUGATED VAG - 1 dose vaginal ##0 04/19/09 03/12/22 (Premarin) rosuvastatin 5 mg tablet (Crestor) See Rx Instructions .Route .COMPLEX 10/15/17 03/12/22 acetaminophen 650 mg 650 mg PO DAILY PRN 09/15/21 03/12/22 tablet,extended release (Tylenol 8 Hour) diltiazem HCl 120 mg 120 mg PO .nightly 09/15/21 03/12/22 capsule,extended release 24 hr ezetimibe 10 mg tablet 10 mg PO .night 09/15/21 03/12/22 flecainide 150 mg tablet 75 mg PO BID 09/15/21 03/12/22 metronidazole 0.75 % topical cream 1 applic topical BID 09/15/21 03/12/22 diltiazem HCl 30 mg tablet 30 mg PO DAILY PRN A-fib 01/01/22 03/12/22 Previous Rx's Medication Instructions Recorded apixaban 5 mg tablet (Eliquis) 5 mg PO BID #180 tabs 02/22/22 hydrocodone 5 mg-acetaminophen 325 1 tab PO Q6H PRN pain #20 tabs 03/12/22 mg tablet hydrocodone 5 mg-acetaminophen 325 1 tab PO Q6H PRN pain #20 tabs 03/12/22 mg tablet hydrocodone 5 mg-acetaminophen 325 1 tab PO Q6H PRN pain #20 tabs 03/12/22 mg tablet losartan 25 mg tablet 25 mg PO DAILY #90 tabs 03/12/22 Allergies Allergy/AdvReac Type Severity Reaction Status Date / Time No Known Drug Allergies Allergy Unknown Verified 03/26/22 13:27 codeine AdvReac Intermediate N/V Verified 03/26/22 13:27 Review of Systems Review of Systems Narrative: GENERAL: Denies chills, fatigue, malaise, fever, sweats. HEENT: Denies sinus pain, ear pain, sore throat, difficulty swallowing, dizziness. RESPIRATORY: See HPI CARDIOVASCULAR: See HPI GASTROINTESTINAL: Denies nausea, vomiting, abdominal pain, diarrhea, constipation, melena. : Denies dysuria, frequency, incontinence, hematuria, urinary retention. MUSCULOSKELETAL: denies weakness, joint pain, or bony pain SKIN: Denies rash, skin lesions, or other NEUROLOGIC: Denies weakness, headache, numbness, change in speech, confusion, seizures, incoordination. PSYCHIATRIC: No concerning psychosocial issues. 12 point review of systems is negative except for those stated above Patient History Medical History Advanced directives, counseling/discussion Age-related osteoporosis without current pathological fracture Atrial fibrillation Chronic back pain Chronic, continuous use of opioids Essential hypertension Fecal incontinence (~2018) Generalized anxiety disorder Left cervical radiculopathy Lumbar back pain (~1986) Medicare annual wellness visit, initial Mixed hyperlipidemia Paroxysmal atrial fibrillation Primary osteoarthritis involving multiple joints Rheumatic fever (~194) Rosacea (~2017) Wears glasses Surgical History Anesthesia History of back surgery (~1986) History of hip surgery (~2017) History of shoulder surgery No pertinent past surgical history Status post right partial knee replacement (~2017) Family History Father Accident Mother History of colon resection Grandfather Cancer Grandmother History of heart disease Grandfather History of heart disease ETOH abuse Grandmother History of heart disease Social History lives independently: Yes Smoking Status: Former smoker Smoking Status: Former smoker alcohol intake frequency: a few times a week Substance Use Type: does not use Exam Narrative Exam Narrative: GENERAL: [81] year old patient appears stated age. Well-developed patient, in mild distress. HEAD: Atraumatic. Normocephalic. EYES: Pupils equal round and reactive. Extraocular motions intact. No scleral icterus. No injection or drainage. ENT: Nose without bleeding, purulent drainage. Throat without erythema, to nsillar hypertrophy or exudate. Airway patent. NECK: Trachea midline. Non tender CARDIOVASCULAR:tachycardic and irregular rhythm without murmurs, gallops, or rubs. RESPIRATORY: Clear to auscultation. Breath sounds equal bilaterally. No wheezes, rales, or rhonchi. GASTROINTESTINAL: Abdomen soft, non-tender, nondistended. EXTREMITIES: No edema or joint tenderness. BACK: Nontender without deformity or crepitance. No flank tenderness. NEURO: AOx3. SKIN: No rash or erythema of visible areas Initial Vital Signs Initial Vital Signs: Vital Signs Temperature 98.0 F 03/26/22 13:23 Pulse Rate 136 H 03/26/22 13:23 Respiratory Rate 16 03/26/22 13:23 Blood Pressure 115/65 03/26/22 13:23 Pulse Oximetry 98 03/26/22 13:23 Oxygen Delivery Method 03/26/22 13:23 Procedures Cardioversion Consent Signed: Yes Indication: rapid, symptomatic Afib Stability: Stable Number of attempts (shocks): 1 Joules used: 120 Cardiac rhythm post-cardioversion: NSR in 50s Procedural Sedation Consent signed: Yes Time out performed: Yes Indication: cardioversion ASA Class: II Mallampati Airway Classification: Class III Preparation: registered nurse cardiac telemetry applied, pulse oximeter, capnometry used, supplem ental O2 applied, suction/airway equipment at bedside and IV secured IV Propofol dose (mg): 40 Intraservice time/total sedation time (min): 10 ED Sedation Level: Moderate (Concious) Complications: none Course Orders Ordered: ED Orders 03/26/22 13:27 XR chest 1V Stat EKG-12 Lead Stat 03/26/22 13:53 Complete Blood Count AUTO DIFF Stat Comprehensive Metabolic Panel Stat Lipase Stat Magnesium Stat Troponin & CK Cardiac Panel Stat Discontinued Medications Propofol (Propofol 200 Mg/20 Ml Vial) 55 mg 1 mg/kg (55 mg) IV NOW ONE Stop: 03/26/22 14:22 Last Admin: 03/26/22 14:46 Dose: 55 mg Vital Signs Vital signs: Vital Signs - 8 hr 03/26/22 13:23 03/26/22 14:38 03/26/22 14:39 Temperature 98.0 F Pulse Rate 136 H 118 H 117 H Respiratory Rate 16 20 Blood Pressure 115/65 Pulse Oximetry 98 98 98 Oxygen Delivery Method Room Air 03/26/22 14:39 Temperature Pulse Rate Respiratory Rate Blood Pressure 128/56 L Pulse Oximetry Oxygen Delivery Method MDM - Chest Pain Lab Data Result diagrams: 03/26/22 13:53 03/26/22 13:53 Labs: Lab Results 03/26/22 03/26/22 Range/Units 13:53 13:53 WBC 8.0 (4.5-11.0) X10^3/uL RBC 4.57 (4.0-5.2) X10^6/uL Hgb 14.0 (12.0-16.0) g/dL Hct 41.3 (36-46) % MCV 90.4 (80-100) fL MCH 30.7 (26-34) PG MCHC 33.9 (30-36) % RDW 12.9 (11.6-14.8) % Plt Count 332 (150-400) X10^3/uL Neut % (Auto) 65.3 (50-75) % Lymph % (Auto) 27.4 (25-40) % Reynolds % (Auto) 6.3 (3-14) % Eos % (Auto) 0.5 L (2-4) % Baso % (Auto) 0.5 (0-2) % Neut # (Auto) 5200 (6296-3765) /uL Lymph # (Auto) 2200 (3974-8887) /uL Reynolds # (Auto) 500 (0-900) /uL Eos # (Auto) 0 (0-450) /uL Baso # (Auto) 0 (0-100) /uL Sodium 138 (137-145) mmol/L Potassium 3.9 (3.4-5.1) mmol/L Chloride 102 (98-107) mmol/L Carbon Dioxide 25 (22-32) mmol/L BUN 19 H (7-17) mg/dL Creatinine 0.66 (0.52-1.04) mg/dL Estimated GFR > 60 (>60) mL/min BUN/Creatinine Ratio 28.8 H (6-22) Glucose 132 H (80-110) mg/dL Calcium 9.1 (8.4-10.2) mg/dL Magnesium 1.8 (1.6-2.3) mg/dL Total Bilirubin 0.3 (0.2-1.3) mg/dL AST 30 (14-36) IU/L ALT 25 (<35) IU/L Alkaline Phosphatase 72 (38-126) U/L Total Creatine Kinase 101 (30-135) U/L CK-MB (CK-2) 1.45 (<2.37) ng/mL CK-MB (CK-2) Rel Index 1.4 L (1.5-5.0) % Troponin I < 0.012 (0.01-0.034) ng/mL Total Protein 7.9 (6.3-8.2) g/dL Albumin 4.4 (3.5-5.0) g/dL Globulin 3.5 (1.7-4.1) g/dL Albumin/Globulin Ratio 1.3 (1.0-2.8) Lipase 112 (23-300) U/L Discharge Plan Departure Patient Disposition: Home Clinical Impression: Paroxysmal atrial fibrillation Instructions: Atrial Fibrillation Activity Restrictions/Additional Instructions: *You have been diagnosed with [rapid atrial fibrillation with procedural sedation (propofol 40 mg) and successful electrocardioversion] *What to do: *Please continue to take your regular medications as directed. *Please follow up with your primary care provider in 2-3 days, call for an appointment. Let them know you were seen in the Emergency Department and that we ask that you be seen in follow up. We will electronically transmit a record of today's note if your PCP is in our system *Return to Emergency Department if you should have any new, worsening or concerning symptoms, such as [fever greater than 101 F, shaking chills, worsening pain, persistent vomiting or other bothersome symptoms] Prescriptions: No Action rosuvastatin [Crestor] 5 mg tablet See Rx Instructions .ROUTE .COMPLEX Label Comments: 1/2 tab every M, W, F in the evening ; Rx Instructions: 1/2 tab every M, W, F in the evening ; acetaminophen [Tylenol 8 Hour] 650 mg tablet extended release 650 mg PO DAILY PRN ESTROGENS CONJUGATED VAG - (Premarin) 1 dose Vaginal Qty: 0 Eliquis 5 mg tablet 5 mg PO BID Qty: 180 3RF diltiazem HCl 120 mg capsule,extended release 24hr 120 mg PO .nightly ezetimibe 10 mg tablet 10 mg PO .night flecainide 150 mg tablet 75 mg PO BID metronidazole 0.75 % cream 1 applic topical BID Rx Instructions: on face losartan 25 mg tablet 25 mg PO DAILY Qty: 90 3RF hydrocodone-acetaminophen 5-325 mg tablet 1 tab PO Q6H PRN (Reason: pain) Qty: 20 0RF hydrocodone-acetaminophen 5-325 mg tablet 1 tab PO Q6H PRN (Reason: pain) Qty: 20 0RF hydrocodone-acetaminophen 5-325 mg tablet 1 tab PO Q6H PRN (Reason: pain) Qty: 20 0RF diltiazem HCl 30 mg tablet 30 mg PO DAILY PRN (Reason: A-fib) Referrals: Drew Adams MD [Primary Care Provider] -
[2022-03-26 14:17] LABS: Alanine Aminotransferase 25 IU/L (<35); Albumin 4.4 g/dL (3.5-5.0); Albumin Globulin Ratio 1.3 (1.0-2.8); Alkaline Phosphatase 72 U/L (38-126); Aspartate Aminotransferase 30 IU/L (14-36); BUN Creatinine Ratio 28.8 (6-22); Bilirubin Total 0.3 mg/dL (0.2-1.3); Blood Urea Nitrogen 19 mg/dL (7-17); Calcium 9.1 mg/dL (8.4-10.2); Carbon Dioxide 25 mmol/L (22-32); Chloride 102 mmol/L (98-107); Creatine Kinase 101 U/L (30-135); Estimated Glomerular Filt Rate > 60 mL/min (>60); Globulin 3.5 g/dL (1.7-4.1); Glucose 132 mg/dL (80-110); HEMOLYSIS 20 (0-50); Lipase 112 U/L (23-300); Magnesium 1.8 mg/dL (1.6-2.3); Potassium 3.9 mmol/L (3.4-5.1); Sodium 138 mmol/L (137-145); Total Protein 7.9 g/dL (6.3-8.2)
[2022-03-26 14:29] LABS: Troponin I < 0.012 ng/mL (0.01-0.034)
[2022-03-26 14:32] LABS: CKMB % Relative Index 1.4 % (1.5-5.0); Creatine Kinase MB 1.45 ng/mL (<2.37)
[2022-03-26] MEDS: propofoL 200 MG/20 ML VIAL 55 MG IV (14:46)
--- NOTE | 2022-03-26 15:08 | PC.NURSE ---
dr. walker only gave 40mg of propofol iv.
--- NOTE | 2022-03-26 15:16 | PC.NURSE ---
dr. walker pushed iv propofol at 1454.
--- NOTE | 2022-03-26 15:26 | PC.NURSE ---
pt tolerated cardioversion well, pt back to her normal of sinus kiran, pt back to room once at 1500.
--- NOTE | 2022-03-26 16:33 | PC.NURSE ---
first contact with patient is discharge. pt was in afib and needed to be cardioverted. pt discharged with SR. no chest pain. no sob.
== END 2022-03-26 16:37 | disposition home or self-care (01) ==
PROVIDERS: Emergency Provider Emergency Medicine; PCP Internal Medicine
DX: I48.0 Paroxysmal atrial fibrillation (principal); R07.9 Chest pain, unspecified; Z79.01 Long term (current) use of anticoagulants
CPT/HCPCS: 36415; 71045; 80053; 82550; 82553; 83690; 83735; 84484; 85025; 92960; 93005; 99152; 99285; J2704

== ENCOUNTER → 2022-05-04 07:35 | Outpatient (CLI) | payer MEDICARE, SELFPAY ==
[2022-05-04 08:50] LABS: Cholesterol 210 mg/dL (140-199); HDL Cholesterol 52 mg/dL (40-60); LDL Cholesterol Calculated 136 mg/dL (<100); Triglycerides 109 mg/dL (35-150)
[2022-05-04 08:57] LABS: Free T4, Direct Thyroxine 1.12 ng/dL (0.78-2.19)
[2022-05-04 09:11] LABS: Thyroid Stimulating Hormone 2.59 uIU/mL (0.47-4.68)
== END ==
PROVIDERS: PCP Internal Medicine; Referring Provider Internal Medicine Cardiovascular Disease; Visit Provider Internal Medicine Cardiovascular Disease
DX: E78.5 Hyperlipidemia, unspecified (principal); Z79.01 Long term (current) use of anticoagulants; I48.19 Other persistent atrial fibrillation; I10 Essential (primary) hypertension
CPT/HCPCS: 36415; 80061; 84439; 84443

== ENCOUNTER → 2022-06-19 08:40 | Outpatient (CLI) | payer MEDICARE, SELFPAY | PROVIDERS: PCP Internal Medicine; Referring Provider Dermatology MOHS-Micrographic Surgery; Visit Provider Surgery | DX: T81.89XA Other complications of procedures, not elsewhere classified, initial encounter (principal); S81.801A Unspecified open wound, right lower leg, initial encounter; I48.0 Paroxysmal atrial fibrillation; Z79.01 Long term (current) use of anticoagulants | CPT/HCPCS: 11042; 99203; 99213 ==

== ENCOUNTER → 2022-06-26 10:37 | Outpatient (CLI) | payer MEDICARE, SELFPAY | PROVIDERS: PCP Internal Medicine; Referring Provider Dermatology MOHS-Micrographic Surgery; Visit Provider Surgery | DX: S81.801A Unspecified open wound, right lower leg, initial encounter (principal); T81.89XA Other complications of procedures, not elsewhere classified, initial encounter; Z79.01 Long term (current) use of anticoagulants; Z87.891 Personal history of nicotine dependence | CPT/HCPCS: 11042 ==

== ENCOUNTER → 2022-07-03 10:14 | Outpatient (CLI) | payer MEDICARE, SELFPAY | PROVIDERS: PCP Internal Medicine; Referring Provider Internal Medicine; Visit Provider Surgery | DX: S81.801A Unspecified open wound, right lower leg, initial encounter (principal); T81.89XA Other complications of procedures, not elsewhere classified, initial encounter; Z87.891 Personal history of nicotine dependence | CPT/HCPCS: 11042 ==

== ENCOUNTER → 2022-07-17 09:15 | Outpatient (CLI) | payer MEDICARE, SELFPAY | PROVIDERS: PCP Internal Medicine; Referring Provider Internal Medicine; Visit Provider Surgery | DX: S81.801A Unspecified open wound, right lower leg, initial encounter (principal); T81.89XA Other complications of procedures, not elsewhere classified, initial encounter | CPT/HCPCS: 97597; 99212; 99213 ==

== ENCOUNTER → 2022-07-23 08:24 | Outpatient (CLI) | payer MEDICARE, SELFPAY ==
--- NOTE | 2022-07-23 | DI.MG.S_ITS ---
BILATERAL DIGITAL SCREENING MAMMOGRAM 3D/2D WITH CAD: 07/23/2022 CLINICAL: Routine screening. Comparison is made to exams dated: 07/18/2021 mammogram, 07/15/2020 mammogram, and 06/25/2019 mammogram - [facility]. Both breasts are heterogeneously dense, which may obscure small masses (category c / 51-75% glandular tissue). Current study was also evaluated with a Computer Aided Detection (CAD) system. No significant masses, calcifications, or other findings are seen in either breast. There has been no significant interval change. IMPRESSION: NEGATIVE There is no mammographic evidence of malignancy. A 1 year screening mammogram is recommended. Based on the Tyrer Cuzick model (a risk assessment model) the patient's lifetime risk is 2.3% and her 10 year risk is 0.0%. According to the ACR, ACS, and NCCN guidelines, an annual breast MRI exam along with mammogram is recommended if the patient's lifetime risk is 20% or greater. This exam was interpreted at Station ID: [id number]. NOTE: For mammograms, a report in lay terms will be sent to the patient. Approximately 15% of breast malignancies will not be visualized mammographically. In the management of a palpable breast mass, a negative mammogram must not discourage biopsy of a clinically suspicious lesion. Electronically Signed By: Abilio artis/haven:07/23/2022 10:26:47 letter sent: Normal Exam ACR BI-RADS Category 1: Negative [id number]
== END ==
PROVIDERS: PCP Internal Medicine; Referring Provider Internal Medicine; Visit Provider Internal Medicine
DX: Z12.31 Encounter for screening mammogram for malignant neoplasm of breast (principal)
CPT/HCPCS: 77063; 77067

== ENCOUNTER → 2022-07-25 08:57 | Outpatient (CLI) | payer MEDICARE, SELFPAY ==
--- NOTE | 2022-07-25 08:58 | DI.RAD.S_ITS ---
PROCEDURE: XR RIBS BI MIN 4V W CXR1V INDICATIONS: back/rib pain TECHNIQUE: 2 views of the bilateral ribs were acquired, along with a single view chest. COMPARISON: None. FINDINGS: Surgical changes and devices: None. Bones and chest wall: No fractures or dislocations. No suspicious bony lesions. Overlying soft tissues appear unremarkable. Lungs and pleura: No pleural effusions or pneumothorax. Lungs appear clear. Mediastinum: Mediastinal contours appear normal. Heart size is normal. IMPRESSION: 1. No acute process. 2. No acute fracture. No osseous lesion. If symptoms and/or clinical suspicion for pathology persist, further assessment with repeat, or advanced imaging (e.g., CT, MRI, or bone scan) may be helpful for further assessment. Dictated by: Esthela Cho M.D. on 07/25/2022 at 10:33 Transcribed by: JAYLON on 07/25/2022 at 10:35 Approved by: Esthela Cho M.D. on 07/25/2022 at 16:04
--- NOTE | 2022-07-25 08:58 | DI.RAD.S_ITS ---
PROCEDURE: XR THORACIC SPINE 3V INDICATIONS: back/rib pain TECHNIQUE: 3 views of the thoracic spine were acquired. COMPARISON: None. FINDINGS: Bones: No fractures or dislocations. No suspicious bony lesions. Visualized ribs are intact. Multilevel disc space narrowing and endplate osteophyte formation. Facet hypertrophy throughout the thoracic spine. Soft tissues: No paravertebral stripe thickening. IMPRESSION: Multilevel degenerative disc disease. No acute fracture. No osseous lesion. If symptoms and/or clinical suspicion for pathology persist, further assessment with repeat, or advanced imaging (e.g., CT, MRI, or bone scan) may be helpful for further assessment. Dictated by: Esthela Cho M.D. on 07/25/2022 at 10:33 Transcribed by: JAYLON on 07/25/2022 at 10:33 Approved by: Esthela Cho M.D. on 07/25/2022 at 16:03
== END ==
PROVIDERS: PCP Internal Medicine; Referring Provider Internal Medicine; Visit Provider Internal Medicine
DX: M54.9 Dorsalgia, unspecified (principal); M51.34 Other intervertebral disc degeneration, thoracic region
CPT/HCPCS: 71111; 72072

== ENCOUNTER 2022-07-29 15:56 | Emergency (ER) | payer MEDICARE, SELFPAY ==
[2022-07-29] VITALS (13 sets, daily range): BP systolic 154–172; BP diastolic 67–111; PULSE 57–69; RESP 18–20; TEMP 36.7; O2SAT 95–99; BMI 22.3
[2022-07-29 17:32] LABS: INR 1.5 (0.9-1.3); Prothrombin Time 17.1 SECONDS (10.1-12.7)
[2022-07-29 17:35] LABS: Add Manual Diff / Slide Review NO; Basophils Absolute Auto 0 /uL (0-100); Basophils Percent Auto 0.7 % (0-2); Eosinophils Absolute Auto 100 /uL (0-450); Eosinophils Percent Auto 1.2 % (2-4); Hematocrit 36.5 % (36-46); Hemoglobin 12.5 g/dL (12.0-16.0); Lymphocytes Absolute Auto 1600 /uL (1100-4500); Lymphocytes Percent Auto 27.7 % (25-40); Mean Corpuscular HGB Conc 34.2 % (30-36); Mean Corpuscular Hemoglobin 30.1 PG (26-34); Mean Corpuscular Volume 87.9 fL (80-100); Monocytes Absolute Auto 600 /uL (0-900); Monocytes Percent Auto 10.2 % (3-14); Neutrophils Absolute Auto 3500 /uL (1500-7000); Neutrophils Percent Auto 60.2 % (50-75); PTT Partial Thromboplastin Tim 36 SECONDS (26-36); Platelet Count 392 X10^3/uL (150-400); Red Blood Cell Count 4.16 X10^6/uL (4.0-5.2); Red Cell Distribution Width 12.9 % (11.6-14.8); White Blood Cell Count 5.9 X10^3/uL (4.5-11.0)
[2022-07-29 17:36] LABS: Alanine Aminotransferase 42 IU/L (<35); Albumin Globulin Ratio 1.1 (1.0-2.8); Alkaline Phosphatase 114 U/L (38-126); Aspartate Aminotransferase 33 IU/L (14-36); BUN Creatinine Ratio 21.1 (6-22); Bilirubin Total 0.3 mg/dL (0.2-1.3); Blood Urea Nitrogen 12 mg/dL (7-17); Calcium 8.7 mg/dL (8.4-10.2); Carbon Dioxide 33 mmol/L (22-32); Chloride 98 mmol/L (98-107); Estimated Glomerular Filt Rate > 60 mL/min (>60); Globulin 3.6 g/dL (1.7-4.1); Glucose 108 mg/dL (80-110); HEMOLYSIS < 15 (0-50); Lipase 55 U/L (23-300); Potassium 3.7 mmol/L (3.4-5.1); Sodium 136 mmol/L (137-145); Total Protein 7.6 g/dL (6.3-8.2)
--- NOTE | 2022-07-29 18:02 | DI.CT.S_ITS ---
PROCEDURE: CT ABDOMEN PELVIS W CON INDICATIONS: abd and low back pain TECHNIQUE: After the administration of intravenous contrast, axial sections acquired from the lung bases to the pubic symphysis. Coronal and sagittal reformats were performed. For radiation dose reduction, the following was used: automated exposure control, adjustment of mA and/or kV according to patient size. COMPARISON: [facility], CT, CT ABDOMEN PELVIS W CON, 07/02/2020, 10:13. [facility], CR, XR THORACIC SPINE 3V, 07/25/2022, 9:11. FINDINGS: Image quality: Excellent. Lung bases: Unremarkable. Heart: No significant findings. ABDOMEN: Liver: Unremarkable. Gallbladder: Unremarkable. Biliary ducts: Unremarkable. Pancreas: Unremarkable. Spleen: Unremarkable. Adrenal Glands: Unremarkable. Kidneys and Ureters: Unremarkable. Stomach and Bowel: Small hiatal hernia. Moderate to large volume of stool is seen in the colon. Small bowel loops are unremarkable. Peritoneum: No abnormal intraperitoneal fluid. No free air. Ventral Wall: No hernias. Abdominal Nodes: No retroperitoneal or mesenteric adenopathy by size criteria. Vessels: Aorta and inferior vena cava are normal in size. Moderate aortic atherosclerotic calcifications. PELVIS: Pelvic Organs: Unremarkable. Bladder: Unremarkable. Pelvic Nodes: No enlarged lymph nodes. Miscellaneous: No hernias are seen. Bones: Postsurgical changes are seen in the left proximal femur and the lumbar spine. Generalized osteopenia. Multilevel degenerative changes are noted in the spine. Mild contour abnormality is seen at the inferior endplate of T11, which is new when compared to the CT from 07/02/2020. No retropulsion of osseous fragments is seen. IMPRESSION: 1. Mild inferior endplate T11 compression fracture, which is of uncertain chronicity but appears new when compared to the prior CT from 07/02/2020. No retropulsion of osseous fragments. 2. Moderate to large volume of stool throughout the colon. Approved by: Abilio Miranda M.D. on 07/29/2022 at 18:55
--- NOTE | 2022-07-29 18:04 | ED.ABDPAIN ---
HPI - Abdominal Pain <Chacorta GomezBAKARI - Last Filed: 07/29/22 19:56> General Chief Complaint: Abdominal Pain Stated Complaint: fell 2 wks ago, severe abd pain Time Seen by Provider: 07/29/22 17:15 Source: patient Mode of arrival: Wheelchair History of Present Illness HPI narrative: 81-year-old female, never smoker with history of AFib, presents to the emergency department with persistent and worsening abdominal and back pain. Patient states that she fell 10 days ago while taking out the trash on her steep asphalt driveway, lost her footing and fell onto her right side. Patient denies hitting her head or any loss of consciousness. Patient reports that she did discuss her symptoms with her family doctor who ordered a chest, ribs and T-spine x-rays, that were all negative. Patient reports that when she fell, it felt like all of her internal organs ?shifted?. Patient reports intermittent and worsening abdominal pain on right upper quadrant, abdominal bloating and low back pain. Patient has been taking Vicodin for her pain and was concerned because she was having normal bowel movements. Patient's family doctor recommended she drink prune juice, MiraLax, polyethylene glycol, etc. to assist in a bowel movement and patient reports that she has been passing flatus and had a normalish bowel movement a few days ago. Patient is very tearful that she is not sure why she is having pain but needs to be able to get around, as she is too busy. Related Data Home Medications Medication Instructions Recorded Confirmed ESTROGENS CONJUGATED VAG - 1 dose vaginal ##0 04/19/09 07/26/22 (Premarin) acetaminophen 650 mg 650 mg PO DAILY PRN 09/15/21 07/26/22 tablet,extended release (Tylenol 8 Hour) diltiazem HCl 120 mg 120 mg PO .nightly 09/15/21 07/26/22 capsule,extended release 24 hr flecainide 150 mg tablet 75 mg PO BID 09/15/21 07/26/22 metronidazole 0.75 % topical cream 1 applic topical BID 09/15/21 07/26/22 diltiazem HCl 30 mg tablet 30 mg PO DAILY PRN A-fib 01/01/22 07/26/22 Previous Rx's Medication Instructions Recorded apixaban 5 mg tablet (Eliquis) 5 mg PO BID #180 tabs 02/22/22 losartan 25 mg tablet 25 mg PO DAILY #90 tabs 03/12/22 ezetimibe 10 mg tablet 10 mg PO BEDTIME #90 tabs 05/31/22 hydrocodone 5 mg-acetaminophen 325 1 tab PO Q6H PRN pain #20 tabs 06/14/22 mg tablet hydrocodone 5 mg-acetaminophen 325 1 tab PO Q6H PRN pain #20 tabs 06/14/22 mg tablet pravastatin 10 mg tablet 10 mg PO BEDTIME #90 tabs 06/14/22 hydrocodone 5 mg-acetaminophen 325 1 tab PO Q6H PRN pain #30 tabs 07/26/22 mg tablet methocarbamol 500 mg tablet 500 mg PO TID #30 tabs 07/26/22 Allergies Allergy/AdvReac Type Severity Reaction Status Date / Time metoprolol Allergy Mild ITCHING Verified 07/29/22 16:25 codeine AdvReac Intermediate N/V Verified 07/29/22 16:25 Review of Systems <BAKARI Perea - Last Filed: 07/29/22 19:56> Review of Systems Narrative: Narrative: See HPI. GENERAL: Denies chills, fatigue, fever, sweats. HEENT: Denies sinus pain, ear pain, sore throat, difficulty swallowing, dizziness. RESPIRATORY: Denies dyspnea, cough, wheezing, sputum. CARDIOVASCULAR: Denies chest pain, palpitations, edema. GASTROINTESTINAL: Denies nausea, vomiting, diarrhea. Endorses decreased appetite and abdominal pain. Endorses intermittent constipation. : Denies dysuria, frequency, incontinence, hematuria, urinary retention, flank pain, loss of control of bowel or bladder. MSK: Denies weakness, joint pain, or bony pain. SKIN: Denies rash, skin lesions, or pruritis. NEUROLOGIC: Denies weakness, dizziness, headache, numbness, confusion. PSYCHIATRIC: No concerning psychosocial issues. Patient History <BAKARI Perea - Last Filed: 07/29/22 19:56> Medical History Age-related osteoporosis without current pathological fracture Atrial fibrillation Chronic anticoagulation Chronic back pain Chronic, continuous use of opioids Essential hypertension Fecal incontinence (~2018) Generalized anxiety disorder Left carotid stenosis Left cervical radiculopathy Lumbar back pain (~1986) Mixed hyperlipidemia Paroxysmal atrial fibrillation Primary osteoarthritis involving multiple joints Rheumatic fever (~1946) Rosacea (~2018) Wears glasses Surgical History Anesthesia History of back surgery (~1986) History of hip surgery (~2017) History of shoulder surgery No pertinent past surgical history Status post right partial knee replacement (~2016) Family History Father Accident Mother History of colon resection Grandfather Cancer Grandmother History of heart disease Grandfather History of heart disease ETOH abuse Grandmother History of heart disease Social History lives independently: Yes Smoking Status: Former smoker Smoking Status: Former smoker alcohol intake frequency: a few times a week Substance Use Type: does not use Exam <BAKARI Perea - Last Filed: 07/29/22 19:56> Narrative Exam Narrative: Exam Narrative: GENERAL: This is a well-nourished, well-developed patient, in no acute distress. HEAD: Atraumatic. Normocephalic. EYES: Pupils equal round and reactive. No scleral icterus, injection or drainage. ENT: Nose without bleeding, purulent drainage. Throat without erythema, tonsillar hypertrophy or exudate. Uvula midline. Airway patent. NECK: Trachea midline. No JVD or lymphadenopathy. Nontender. CARDIOVASCULAR: Regular rate and rhythm without murmurs, peripheral pulses intact, cap refill <2 sec. RESPIRATORY: Breath sounds equal and clear bilaterally. No wheezes, rales, or rhonchi. No cough. No increased respiratory effort. No accessory muscle use. GASTROINTESTINAL: Abdomen soft, mild right upper quadrant tenderness, mildly distended without guarding or rebound. No suprapubic pain. MSK: Moves all extremities. Normal range of motion, no clubbing or edema. Neurovascularly intact. No hip or pelvis pain. NEURO: A&O x 3. SKIN: Warm, dry, no rashes or lesions noted. BACK chore tender but free of any obvious external abnormalities. There is no asymmetry, swelling, bruising or wound. There is no paraspinal tenderness or CVA tenderness. SI joints nontender. No pain over spinous processes. No symptoms of cauda equina such as saddle anesthesia. Sensation is grossly intact. ROM is full but with pain. SLE is negative bilaterally. Resistive strengths are within normal limits Initial Vital Signs Initial Vital Signs: Vital Signs Temperature 98.1 F 07/29/22 16:19 Pulse Rate 69 07/29/22 16:19 Respiratory Rate 20 07/29/22 16:19 Blood Pressure 158/67 H 07/29/22 16:19 Pulse Oximetry 97 07/29/22 16:19 Oxygen Delivery Method Room Air 07/29/22 16:19 Reviewed <Chacorta Griffin DO - Last Filed: 07/30/22 00:20> Initial Vital Signs Initial Vital Signs: Vital Signs Temperature 98.1 F 07/29/22 16:19 Pulse Rate 69 07/29/22 16:19 Respiratory Rate 20 07/29/22 16:19 Blood Pressure 158/67 H 07/29/22 16:19 Pulse Oximetry 97 07/29/22 16:19 Oxygen Delivery Method Room Air 07/29/22 16:19 Course <BAKARI Perea - Last Filed: 07/29/22 19:56> Orders Ordered: ED Orders 07/29/22 17:00 Complete Blood Count AUTO DIFF Stat Comprehensive Metabolic Panel Stat Lipase Stat PT [Prothrombin Time INR] Stat PTT [PTT Partial Thromboplastin Didier] Stat 07/29/22 17:01 EKG-12 Lead Stat 07/29/22 18:02 CT abdomen pelvis w con Stat Discontinued Medications Ketorolac Tromethamine (Ketorolac 30 Mg/Ml Vial) 15 mg IV NOW ONE Stop: 07/29/22 18:41 Last Admin: 07/29/22 18:49 Dose: 15 mg Documented By: KAYLA Vital Signs Vital signs: Vital Signs - 8 hr 07/29/22 16:47 07/29/22 16:48 07/29/22 16:48 Pulse Rate 65 63 Respiratory Rate Blood Pressure 170/70 H Pulse Oximetry 97 97 Oxygen Delivery Method 07/29/22 17:00 07/29/22 17:00 07/29/22 17:30 Pulse Rate 63 57 L Respiratory Rate Blood Pressure 155/79 H Pulse Oximetry 96 96 Oxygen Delivery Method Room Air 07/29/22 17:31 07/29/22 17:31 07/29/22 18:00 Pulse Rate 58 L Respiratory Rate Blood Pressure 154/67 H 171/111 H Pulse Oximetry 95 Oxygen Delivery Method 07/29/22 18:00 07/29/22 18:21 07/29/22 18:21 Pulse Rate 61 62 Respiratory Rate Blood Pressure 166/68 H Pulse Oximetry 99 97 Oxygen Delivery Method 07/29/22 18:30 07/29/22 18:31 07/29/22 18:31 Pulse Rate 61 62 Respiratory Rate Blood Pressure 172/71 H Pulse Oximetry 97 97 Oxygen Delivery Method 07/29/22 19:00 07/29/22 19:01 07/29/22 19:01 Pulse Rate 64 60 Respiratory Rate Blood Pressure 160/72 H Pulse Oximetry 97 96 Oxygen Delivery Method 07/29/22 19:38 Pulse Rate 64 Respiratory Rate 18 Blood Pressure 160/72 H Pulse Oximetry 97 Oxygen Delivery Method Room Air <Chacorta Griffin, - Last Filed: 07/30/22 00:20> Orders Ordered: ED Orders 07/29/22 17:00 Complete Blood Count AUTO DIFF Stat Comprehensive Metabolic Panel Stat Lipase Stat PT [Prothrombin Time INR] Stat PTT [PTT Partial Thromboplastin Didier] Stat 07/29/22 17:01 EKG-12 Lead Stat 07/29/22 18:02 CT abdomen pelvis w con Stat Discontinued Medications Ketorolac Tromethamine (Ketorolac 30 Mg/Ml Vial) 15 mg IV NOW ONE Stop: 07/29/22 18:41 Last Admin: 07/29/22 18:49 Dose: 15 mg Documented By: KAYLA Vital Signs Vital signs: Vital Signs - 8 hr 07/29/22 16:47 07/29/22 16:48 07/29/22 16:48 Pulse Rate 65 63 Respiratory Rate Blood Pressure 170/70 H Pulse Oximetry 97 97 Oxygen Delivery Method 07/29/22 17:00 07/29/22 17:00 07/29/22 17:30 Pulse Rate 63 57 L Respiratory Rate Blood Pressure 155/79 H Pulse Oximetry 96 96 Oxygen Delivery Method Room Air 07/29/22 17:31 07/29/22 17:31 07/29/22 18:00 Pulse Rate 58 L Respiratory Rate Blood Pressure 154/67 H 171/111 H Pulse Oximetry 95 Oxygen Delivery Method 07/29/22 18:00 07/29/22 18:21 07/29/22 18:21 Pulse Rate 61 62 Respiratory Rate Blood Pressure 166/68 H Pulse Oximetry 99 97 Oxygen Delivery Method 07/29/22 18:30 07/29/22 18:31 07/29/22 18:31 Pulse Rate 61 62 Respiratory Rate Blood Pressure 172/71 H Pulse Oximetry 97 97 Oxygen Delivery Method 07/29/22 19:00 07/29/22 19:01 07/29/22 19:01 Pulse Rate 64 60 Respiratory Rate Blood Pressure 160/72 H Pulse Oximetry 97 96 Oxygen Delivery Method 07/29/22 19:38 Pulse Rate 64 Respiratory Rate 18 Blood Pressure 160/72 H Pulse Oximetry 97 Oxygen Delivery Method Room Air MDM - Abdominal Pain <BAKARI Perea - Last Filed: 07/29/22 19:56> Differential Diagnosis Differential diagnosis: Likely abdominal pain, constipation and small bowel obstruction Lab Data 07/29/22 17:00 07/29/22 17:00 Labs: Lab Results 07/29/22 07/29/22 07/29/22 Range/Units 17:00 17:00 17:00 WBC 5.9 (4.5-11.0) X10^3/uL RBC 4.16 (4.0-5.2) X10^6/uL Hgb 12.5 (12.0-16.0) g/dL Hct 36.5 (36-46) % MCV 87.9 (80-100) fL MCH 30.1 (26-34) PG MCHC 34.2 (30-36) % RDW 12.9 (11.6-14.8) % Plt Count 392 (150-400) X10^3/uL Neut % (Auto) 60.2 (50-75) % Lymph % (Auto) 27.7 (25-40) % Pickett % (Auto) 10.2 (3-14) % Eos % (Auto) 1.2 L (2-4) % Baso % (Auto) 0.7 (0-2) % Neut # (Auto) 3500 (3722-3722) /uL Lymph # (Auto) 1600 (6161-8039) /uL Pickett # (Auto) 600 (0-900) /uL Eos # (Auto) 100 (0-450) /uL Baso # (Auto) 0 (0-100) /uL PT 17.1 H (10.1-12.7) SECONDS INR 1.5 H (0.9-1.3) APTT 36 (26-36) SECONDS Sodium 136 L (137-145) mmol/L Potassium 3.7 (3.4-5.1) mmol/L Chloride 98 (98-107) mmol/L Carbon Dioxide 33 H (22-32) mmol/L BUN 12 (7-17) mg/dL Creatinine 0.57 (0.52-1.04) mg/dL Estimated GFR > 60 (>60) mL/min BUN/Creatinine Ratio 21.1 (6-22) Glucose 108 (80-110) mg/dL Calcium 8.7 (8.4-10.2) mg/dL Total Bilirubin 0.3 (0.2-1.3) mg/dL AST 33 (14-36) IU/L ALT 42 H (<35) IU/L Alkaline Phosphatase 114 (38-126) U/L Total Protein 7.6 (6.3-8.2) g/dL Albumin 4.0 (3.5-5.0) g/dL Globulin 3.6 (1.7-4.1) g/dL Albumin/Globulin Ratio 1.1 (1.0-2.8) Lipase 55 (23-300) U/L Point of care testing: Urine Dip Bedside Urine Glucose Negative Bedside Urine Bilirubin - Negative Bedside Urine Ketone - Negative Urine Specific [place] 1.010 Bedside Urine Occult Blood - Negative Bedside Urine pH 8.0 Bedside Urine Protein - Negative Bedside Urine Urobilinogen - Negative Bedside Urine Nitrite - Negative Bedside Urine Leukocytes - Negative Esterase Imaging Data CT scan - abdomen/pelvis: Radiologist's Impression: [address] [address] [address] Scan Report Signed Patient: Sandra Koo MR#: [id number] : 1940 Acct:[id number] Age/Sex: 81 / F Date of Service: 07/29/22 Loc: ED Accession Number: [id number] ?? Procedure: CT abdomen pelvis w con Ordering Provider: Chacorta Gomez PROCEDURE:? CT ABDOMEN PELVIS W CON ? INDICATIONS:? abd and low back pain ? TECHNIQUE:? After the administration of intravenous contrast, axial sections acquired from the lung bases to the pubic symphysis.? Coronal and sagittal reformats were performed.? For radiation dose reduction, the following was used:? automated exposure control, adjustment of mA and/or kV according to patient size.? ? COMPARISON:? [facility], CT, CT ABDOMEN PELVIS W CON, 07/02/2020, 10:13.? [facility], CR, XR THORACIC SPINE 3V, 07/25/2022, 9:11. ? FINDINGS:? Image quality:? Excellent.? ? Lung bases:? Unremarkable. Heart:? No significant findings. ? ABDOMEN: Liver:? Unremarkable.? ? Gallbladder:? Unremarkable. Biliary ducts:? Unremarkable.? ? Pancreas:? Unremarkable.? ? Spleen:? Unremarkable.? ? Adrenal Glands:? Unremarkable.? ? Kidneys and Ureters:? Unremarkable.? ? ? Stomach and Bowel:? Small hiatal hernia.? Moderate to large volume of stool is seen in the colon.? Small bowel loops are unremarkable.? Peritoneum:? No abnormal intraperitoneal fluid.? No free air.? ? Ventral Wall: ? No hernias.? Abdominal Nodes:? No retroperitoneal or mesenteric adenopathy by size criteria.? Vessels:? Aorta and inferior vena cava are normal in size.? Moderate aortic atherosclerotic calcifications. ? PELVIS: Pelvic Organs:? Unremarkable.? ? Bladder:? Unremarkable.? ? Pelvic Nodes: No enlarged lymph nodes.? Miscellaneous: No hernias are seen. ? ? ? Bones:? Postsurgical changes are seen in the left proximal femur and the lumbar spine.? Generalized osteopenia.? Multilevel degenerative changes are noted in the spine.? Mild contour abnormality is seen at the inferior endplate of T11, which is new when compared to the CT from 07/02/2020.? No retropulsion of osseous fragments is seen. ? ? IMPRESSION:? 1. Mild inferior endplate T11 compression fracture, which is of uncertain chronicity but appears new when compared to the prior CT from 07/02/2020.? No retropulsion of osseous fragments. 2. Moderate to large volume of stool throughout the colon. ? ? ? Approved by: Abilio Miranda M.D. on 07/29/2022 at 18:55? MDM Narrative Medical decision making narrative: 81-year-old female that presents to the emergency department after a ground level fall 10 days ago. X-rays of chest, ribs and T-spine obtained 4 days ago reveal no fractures or abnormalities. Assessment was inconclusive and patient's reports of pain are not specific. CT reveals large volume of stool throughout the colon and possibly new T11 compression fracture. Instructed patient to continue taking the pain medications as previously prescribed, and to use the stool softening recommendations by her family doctor to include polyethylene glycol, prune juice, in addition to Fleet's enema or suppositories. Discussed plan of care with patient, who verbalized understanding. Consideration included that injury was traumatic, patient is not a IV drug user, no fever, neurovascular intact, no weakness, no signs of epidural abscess or saddle anesthesia. <Chacorta Griffin, - Last Filed: 07/30/22 00:20> Lab Data Labs: Lab Results 07/29/22 07/29/22 07/29/22 Range/Units 17:00 17:00 17:00 WBC 5.9 (4.5-11.0) X10^3/uL RBC 4.16 (4.0-5.2) X10^6/uL Hgb 12.5 (12.0-16.0) g/dL Hct 36.5 (36-46) % MCV 87.9 (80-100) fL MCH 30.1 (26-34) PG MCHC 34.2 (30-36) % RDW 12.9 (11.6-14.8) % Plt Count 392 (150-400) X10^3/uL Neut % (Auto) 60.2 (50-75) % Lymph % (Auto) 27.7 (25-40) % Pickett % (Auto) 10.2 (3-14) % Eos % (Auto) 1.2 L (2-4) % Baso % (Auto) 0.7 (0-2) % Neut # (Auto) 3500 (6272-8318) /uL Lymph # (Auto) 1600 (5146-7161) /uL Pickett # (Auto) 600 (0-900) /uL Eos # (Auto) 100 (0-450) /uL Baso # (Auto) 0 (0-100) /uL PT 17.1 H (10.1-12.7) SECONDS INR 1.5 H (0.9-1.3) APTT 36 (26-36) SECONDS Sodium 136 L (137-145) mmol/L Potassium 3.7 (3.4-5.1) mmol/L Chloride 98 (98-107) mmol/L Carbon Dioxide 33 H (22-32) mmol/L BUN 12 (7-17) mg/dL Creatinine 0.57 (0.52-1.04) mg/dL Estimated GFR > 60 (>60) mL/min BUN/Creatinine Ratio 21.1 (6-22) Glucose 108 (80-110) mg/dL Calcium 8.7 (8.4-10.2) mg/dL Total Bilirubin 0.3 (0.2-1.3) mg/dL AST 33 (14-36) IU/L ALT 42 H (<35) IU/L Alkaline Phosphatase 114 (38-126) U/L Total Protein 7.6 (6.3-8.2) g/dL Albumin 4.0 (3.5-5.0) g/dL Globulin 3.6 (1.7-4.1) g/dL Albumin/Globulin Ratio 1.1 (1.0-2.8) Lipase 55 (23-300) U/L Point of care testing: Urine Dip Bedside Urine Glucose Negative Bedside Urine Bilirubin - Negative Bedside Urine Ketone - Negative Urine Specific [place] 1.010 Bedside Urine Occult Blood - Negative Bedside Urine pH 8.0 Bedside Urine Protein - Negative Bedside Urine Urobilinogen - Negative Bedside Urine Nitrite - Negative Bedside Urine Leukocytes - Negative Esterase Discharge Plan Departure Patient Disposition: Home Clinical Impression: Constipation, Thoracic spine fracture Instructions: DI for Constipation Activity Restrictions/Additional Instructions: *You have been diagnosed with constipation and a T11 compression fracture. Please continue taking the pain medications, as previously prescribed, for discomfort. Additionally you should be diligent in taking the stool softening medications previously recommended that include polyethylene glycol, warm prune juice and additionally may consider a Fleet's enema or suppository. Please follow-up with your family doctor as needed. *What to do: *Please continue to take your regular medications as directed. [ ] New medication prescriptions sent to your pharmacy: [ ] [ ] New medication written as a paper prescription [ x] No new medications given *Please follow up with your primary care provider in 2-3 days, call for an appointment. Let them know you were seen in the Emergency Department and that we ask that you be seen in follow up. We will electronically transmit a record of today's note if your PCP is in our system *If you do not have a primary care provider please contact the [facility] Resource line at [phone]. They will ask some questions about your medical history and help get you set up with a doctor in the community. ? Return to ER if you should have any new, worsening or concerning symptoms, such as worsening pain, severe headache, confusion, chest pain, difficulty breathing, fever greater than 101 F, shaking chills, persistent vomiting to the point that you cannot drink fluids, or other new or worsening symptoms. Prescriptions: No Action acetaminophen [Tylenol 8 Hour] 650 mg tablet extended release 650 mg PO DAILY PRN ESTROGENS CONJUGATED VAG - (Premarin) 1 dose Vaginal Qty: 0 Eliquis 5 mg tablet 5 mg PO BID Qty: 180 3RF ezetimibe 10 mg tablet 10 mg PO BEDTIME Qty: 90 3RF diltiazem HCl 120 mg capsule,extended release 24hr 120 mg PO .nightly flecainide 150 mg tablet 75 mg PO BID metronidazole 0.75 % cream 1 applic topical BID Rx Instructions: on face losartan 25 mg tablet 25 mg PO DAILY Qty: 90 3RF diltiazem HCl 30 mg tablet 30 mg PO DAILY PRN (Reason: A-fib) methocarbamol 500 mg tablet 500 mg PO TID Qty: 30 1RF Rx Instructions: 1-2 tablets three times daily as needed for spasms/pain hydrocodone-acetaminophen 5-325 mg tablet 1 tab PO Q6H PRN (Reason: pain) Qty: 30 0RF hydrocodone-acetaminophen 5-325 mg tablet 1 tab PO Q6H PRN (Reason: pain) Qty: 20 0RF hydrocodone-acetaminophen 5-325 mg tablet 1 tab PO Q6H PRN (Reason: pain) Qty: 20 0RF pravastatin 10 mg tablet 10 mg PO BEDTIME Qty: 90 3RF Referrals: Drew Adams MD [Primary Care Provider] - Stand Alone Forms: Patient Portal/API <Chacorta Griffin, DO - Last Filed: 07/30/22 00:20> Cosign ED Attending Cosignature Attestation: Dr Griffin Co-Sign Statement: I was available for consultation during this patient's emergency department visit. This chart is signed by myself for administrative purposes only. I did not have direct contact with this patient during this visit. They were seen independently by the APC.
[2022-07-29] MEDS: KETOROLAC 30 MG/ML VIAL 15 MG IV (18:49)
== END 2022-07-29 19:39 | disposition home or self-care (01) ==
PROVIDERS: Emergency Medicine; Emergency Provider Registered Nurse; PCP Internal Medicine
DX: S22.089A Unspecified fracture of T11-T12 vertebra, initial encounter for closed fracture (principal); K59.00 Constipation, unspecified; R10.9 Unspecified abdominal pain; W18.30XA Fall on same level, unspecified, initial encounter
CPT/HCPCS: 74177; 80053; 81003; 83690; 85025; 85610; 85730; 93005; 96374; 99284; J1885; Q9967

== ENCOUNTER → 2022-07-31 09:49 | Outpatient (CLI) | payer MEDICARE, SELFPAY | PROVIDERS: PCP Internal Medicine; Referring Provider Internal Medicine; Visit Provider Surgery | DX: T81.89XA Other complications of procedures, not elsewhere classified, initial encounter (principal); S81.801A Unspecified open wound, right lower leg, initial encounter; I48.91 Unspecified atrial fibrillation; Z79.01 Long term (current) use of anticoagulants | CPT/HCPCS: 99213 ==

== ENCOUNTER → 2022-08-06 10:52 | Outpatient (CLI) | payer MEDICARE, SELFPAY | PROVIDERS: PCP Internal Medicine; Referring Provider Internal Medicine; Visit Provider Surgery | DX: S81.801A Unspecified open wound, right lower leg, initial encounter (principal); T81.89XA Other complications of procedures, not elsewhere classified, initial encounter; Z79.01 Long term (current) use of anticoagulants | CPT/HCPCS: 99213 ==

== ENCOUNTER → 2022-08-13 10:02 | Outpatient (CLI) | payer MEDICARE, SELFPAY | PROVIDERS: PCP Internal Medicine; Referring Provider Dermatology MOHS-Micrographic Surgery; Visit Provider Surgery | DX: T81.31XD Disruption of external operation (surgical) wound, not elsewhere classified, subsequent encounter (principal); Z79.01 Long term (current) use of anticoagulants | CPT/HCPCS: 99212; 99213 ==

== ENCOUNTER 2022-11-13 10:29 | Emergency (ER) | payer MEDICARE, SELFPAY ==
[2022-11-13 10:37] VITALS: BP 170/66; PULSE 66; RESP 14; TEMP 36.4; O2SAT 99; BMI 22.1
--- NOTE | 2022-11-13 10:53 | ED.NECK ---
HPI - Neck Pain/Injury <Evon Benitez PA-C - Last Filed: 11/13/22 12:04> General Chief Complaint: Neck Pain/Injury Stated Complaint: cannot turn head, pain in back of head Time Seen by Provider: 11/13/22 10:39 Mode of arrival: Ambulatory History of Present Illness HPI Narrative: 82-year-old female with past medical history atrial fibrillation, on Eliquis, hypertension, hyperlipidemia, osteoporosis presents to the ED with 3 days of neck pain. Patient states that the pain started spontaneously after she had finished cooking. Patient denies any trauma, falls. Patient states that her neck feels stiff, painful with movement. Patient denies fever, chills, chest pain, shortness of breath, nausea, vomiting. Patient does state that she has some intermittent numbness in her left hand since her neck pain started. Patient states that she has some baseline tingling and numbness in bilateral hands which was diagnosed as carpal tunnel syndrome in the past. Related Data Home Medications Medication Instructions Recorded Confirmed ESTROGENS CONJUGATED VAG - 1 dose vaginal ##0 04/19/09 09/20/22 (Premarin) acetaminophen 650 mg 650 mg PO DAILY PRN 09/15/21 09/20/22 tablet,extended release (Tylenol 8 Hour) diltiazem HCl 120 mg 120 mg PO .nightly 09/15/21 09/20/22 capsule,extended release 24 hr flecainide 150 mg tablet 75 mg PO BID 09/15/21 09/20/22 metronidazole 0.75 % topical cream 1 applic topical BID 09/15/21 09/20/22 diltiazem HCl 30 mg tablet 30 mg PO DAILY PRN A-fib 01/01/22 09/20/22 Previous Rx's Medication Instructions Recorded apixaban 5 mg tablet (Eliquis) 5 mg PO BID #180 tabs 02/22/22 losartan 25 mg tablet 25 mg PO DAILY #90 tabs 03/12/22 ezetimibe 10 mg tablet 10 mg PO BEDTIME #90 tabs 05/31/22 pravastatin 10 mg tablet 10 mg PO BEDTIME #90 tabs 06/14/22 methocarbamol 500 mg tablet 500 mg PO TID #30 tabs 07/26/22 gabapentin 100 mg capsule 100 mg PO BEDTIME #30 caps 09/20/22 hydrocodone 5 mg-acetaminophen 325 1 tab PO Q6H PRN pain #20 tabs 09/20/22 mg tablet hydrocodone 5 mg-acetaminophen 325 1 tab PO Q6H PRN pain #20 tabs 09/20/22 mg tablet hydrocodone 5 mg-acetaminophen 325 1 tab PO Q6H PRN pain #20 tabs 09/20/22 mg tablet cyclobenzaprine 10 mg tablet 10 mg PO TID PRN muscle spasm #30 11/13/22 tabs Allergies Allergy/AdvReac Type Severity Reaction Status Date / Time metoprolol Allergy Mild ITCHING Verified 11/13/22 10:39 atorvastatin AdvReac Intermediate aches Verified 11/13/22 10:39 codeine AdvReac Intermediate N/V Verified 11/13/22 10:39 pravastatin AdvReac Intermediate aches Verified 11/13/22 10:39 rosuvastatin AdvReac Intermediate aches Verified 11/13/22 10:39 Review of Systems <Evon Benitez PA-C - Last Filed: 11/13/22 12:04> Review of Systems ROS Unobtainable: All systems reviewed & are unremarkable except as noted in HPI and below Constitutional Constitutional: Denies chills, Denies fatigue, Denies fever(s), Denies frequent falls, Denies lethargy and Denies weakness Eyes Eyes: Denies change in vision, Denies eye discharge, Denies irritation and Denies loss of vision ENT Ears, Nose, Mouth, and Throat: Denies change in voice, Denies dizziness, Reports neck pain, Denies sore throat and Denies throat swelling Cardiovascular Cardiovascular: Denies chest pain, Denies irregular heart rhythm, Denies lightheadedness, Denies palpitations, Denies dyspnea, Denies dyspnea on exertion and Denies orthopnea Respiratory Respiratory: Denies cough, Denies dyspnea, Denies dyspnea on exertion and Denies wheezing Gastrointestinal Gastrointestinal: Denies abdominal pain, Denies change in bowel habits, Denies diarrhea, Denies nausea and Denies vomiting Genitourinary Genitourinary: Denies hematuria, Denies flank pain, Denies urinary incontinence and Denies urinary urgency Musculoskeletal Musculoskeletal: Denies back pain, Denies muscle weakness, Reports neck pain, Reports numbness, Denies radiating pain into limb and Denies tingling Integumentary/Breasts Skin/Breast: Denies pruritus, Denies erythema, Denies rash and Denies wounds Neurologic Neurologic: Denies behavioral changes, Denies confusion, Denies dizziness, Denies frequent falls, Denies loss of vision, Reports numbness, Denies tingling and Denies weakness Psychiatric Psychiatric: Denies anxiety, Denies behavioral changes, Denies confusion, Denies depression, Denies homicidal ideation and Denies suicidal ideation Endocrine Endocrine: Denies fatigue, Denies flushing and Denies palpitations Hematologic/Lymphatic Hematologic/Lymphatic: Denies easy bruising Allergic/Immunologic Allergic/Immunologic: Denies urticaria, Denies throat swelling and Denies wheezing Patient History <Evon Benitez PA-C - Last Filed: 11/13/22 12:04> Medical History Age-related osteoporosis without current pathological fracture Atrial fibrillation Chronic anticoagulation Chronic back pain Chronic, continuous use of opioids Essential hypertension Fecal incontinence (~2018) Generalized anxiety disorder Left carotid stenosis Left cervical radiculopathy Lumbar back pain (~1986) Mixed hyperlipidemia Paroxysmal atrial fibrillation Primary osteoarthritis involving multiple joints Rheumatic fever (~194) Rosacea (~2017) Wears glasses Surgical History Anesthesia History of back surgery (~1986) History of hip surgery (~2017) History of shoulder surgery No pertinent past surgical history Status post right partial knee replacement (~2016) Family History Father Accident Mother History of colon resection Grandfather Cancer Grandmother History of heart disease Grandfather History of heart disease ETOH abuse Grandmother History of heart disease Social History lives independently: Yes Smoking Status: Former smoker Smoking Status: Former smoker alcohol intake frequency: a few times a week Substance Use Type: does not use Exam <Evon Benitez PA-C - Last Filed: 11/13/22 12:04> Narrative Exam Narrative: Const General:?cooperative, healthy appearing and comfortable [facility] [place] Head:?normal to inspection Ears:?hearing grossly normal bilaterally Nose:?external nose normal Face and sinus:?normal facial exam and sinuses nontender Mouth:?oral mucosae normal Throat:?posterior oropharynx normal Eyes General:?appearance normal, both eyes and all related structures Neck Neck:?normal visual inspection and no lymphadenopathy noted Resp Effort & Inspection:?normal respiratory effort Auscultation:?clear to auscultation bilaterally Cardio Rate:?regular rate Rhythm:?regular rhythm Musculoskeletal No midline tenderness to palpation. No paraspinal tenderness to palpation. Range of motion of neck is limited by pain. Strength and sensation is intact. Patient appears neurovascularly intact. Neuro General:?patient alert, patient awake and patient oriented x3 Initial Vital Signs Initial Vital Signs: Vital Signs Temperature 97.6 F 11/13/22 10:37 Pulse Rate 66 11/13/22 10:37 Respiratory Rate 14 11/13/22 10:37 Blood Pressure 170/66 H 11/13/22 10:37 Pulse Oximetry 99 11/13/22 10:37 Oxygen Delivery Method Room Air 11/13/22 10:37 <Raphael Kennedy MD - Last Filed: 11/28/22 20:00> Initial Vital Signs Initial Vital Signs: Vital Signs Temperature 97.6 F 11/13/22 10:37 Pulse Rate 66 11/13/22 10:37 Respiratory Rate 14 11/13/22 10:37 Blood Pressure 170/66 H 11/13/22 10:37 Pulse Oximetry 99 11/13/22 10:37 Oxygen Delivery Method Room Air 11/13/22 10:37 Course <Evon Benitez PA-C - Last Filed: 11/13/22 12:04> Orders Ordered: Discontinued Medications Cyclobenzaprine HCl (Cyclobenzaprine 10 Mg Tablet) 10 mg PO NOW ONE Stop: 11/13/22 10:50 Last Admin: 11/13/22 10:55 Dose: 10 mg Documented By: [facility] Ketorolac Tromethamine (Ketorolac 30 Mg/Ml Vial) 30 mg IM NOW ONE Stop: 11/13/22 10:50 Last Admin: 11/13/22 10:54 Dose: 30 mg Documented By: [facility] Vital Signs Vital signs: Vital Signs - 8 hr 11/13/22 10:37 Temperature 97.6 F Pulse Rate 66 Respiratory Rate 14 Blood Pressure 170/66 H Pulse Oximetry 99 Oxygen Delivery Method Room Air <Raphael Kennedy MD - Last Filed: 11/28/22 20:00> Orders Ordered: Discontinued Medications Cyclobenzaprine HCl (Cyclobenzaprine 10 Mg Tablet) 10 mg PO NOW ONE Stop: 11/13/22 10:50 Last Admin: 11/13/22 10:55 Dose: 10 mg Documented By: [facility] Ketorolac Tromethamine (Ketorolac 30 Mg/Ml Vial) 30 mg IM NOW ONE Stop: 11/13/22 10:50 Last Admin: 11/13/22 10:54 Dose: 30 mg Documented By: [facility] Vital Signs Vital signs: Vital Signs - 8 hr 11/13/22 10:37 Temperature 97.6 F Pulse Rate 66 Respiratory Rate 14 Blood Pressure 170/66 H Pulse Oximetry 99 Oxygen Delivery Method Room Air MDM - Neck Pain/Injury <Evon Benitez PA-C - Last Filed: 11/13/22 12:04> MDM Narrative Medical decision making narrative: 82-year-old female with past medical history atrial fibrillation, on Eliquis, hypertension, hyperlipidemia, osteoporosis presents to the ED with 3 days of neck pain. Patient's symptoms are likely due to a musculoskeletal sprain/strain of the neck. Unlikely fracture/dislocation given history and physical exam. Will give ketorolac, Flexeril and reassess. Patient's symptoms improved with medications. Discharge patient home with prescription for Flexeril. Recommend Flexeril, Tylenol, heat packs, lidocaine patches as needed for comfort. ED return precautions were discussed with patient. Patient verbalized understanding. Medical records reviewed: Yes Discharge Plan Departure Patient Disposition: Home Clinical Impression: Neck pain Instructions: DI for Neck Pain Activity Restrictions/Additional Instructions: You were evaluated in the ED today for neck pain. Your symptoms are likely due to a musculoskeletal sprain/strain. Your symptoms improved well with Toradol and Flexeril. You are being given a prescription for Flexeril to take at home as needed. You may take the Flexeril along with Tylenol for symptom relief. You may also use lidocaine patches which are available [id number]. Heat packs will also be helpful. Return to the ED if your symptoms worsen. Please follow-up with your PCP as soon as possible for further evaluation. Prescriptions: New cyclobenzaprine 10 mg tablet 10 mg PO TID PRN (Reason: muscle spasm) Qty: 30 0RF No Action acetaminophen [Tylenol 8 Hour] 650 mg tablet extended release 650 mg PO DAILY PRN ESTROGENS CONJUGATED VAG - (Premarin) 1 dose Vaginal Qty: 0 Eliquis 5 mg tablet 5 mg PO BID Qty: 180 3RF ezetimibe 10 mg tablet 10 mg PO BEDTIME Qty: 90 3RF diltiazem HCl 120 mg capsule,extended release 24hr 120 mg PO .nightly flecainide 150 mg tablet 75 mg PO BID metronidazole 0.75 % cream 1 applic topical BID Rx Instructions: on face losartan 25 mg tablet 25 mg PO DAILY Qty: 90 3RF diltiazem HCl 30 mg tablet 30 mg PO DAILY PRN (Reason: A-fib) methocarbamol 500 mg tablet 500 mg PO TID Qty: 30 1RF Rx Instructions: 1-2 tablets three times daily as needed for spasms/pain pravastatin 10 mg tablet 10 mg PO BEDTIME Qty: 90 3RF hydrocodone-acetaminophen 5-325 mg tablet 1 tab PO Q6H PRN (Reason: pain) Qty: 20 0RF hydrocodone-acetaminophen 5-325 mg tablet 1 tab PO Q6H PRN (Reason: pain) Qty: 20 0RF hydrocodone-acetaminophen 5-325 mg tablet 1 tab PO Q6H PRN (Reason: pain) Qty: 20 0RF gabapentin 100 mg capsule 100 mg PO BEDTIME Qty: 30 5RF Referrals: Drew Adams MD [Primary Care Provider] - Stand Alone Forms: Patient Portal/API <Raphael Kennedy MD - Last Filed: 11/28/22 20:00> [facility]: I was immediately available in the department for consultation. This documentation has been reviewed and I agree with assessment and plan. Supervised by Raphael Kennedy MD
[2022-11-13] MEDS: KETOROLAC 30 MG/ML VIAL IM (10:54)
[2022-11-13] MEDS: CYCLOBENZAPRINE 10 MG TABLET PO (10:55)
== END 2022-11-13 11:47 | disposition home or self-care (01) ==
PROVIDERS: Emergency Provider Student in an Organized Health Care Education/Training Program; PCP Internal Medicine
DX: M54.2 Cervicalgia (principal)
CPT/HCPCS: 96372; 99283; J1885

== ENCOUNTER → 2022-12-13 10:19 | Outpatient (CLI) | payer MEDICARE, SELFPAY ==
--- NOTE | 2022-12-13 10:44 | DI.DEXA.S_ITS ---
Bone Density Report Name: JUDY PARDO Age: 82 Sex: Female Ethnicity: White Date of : 1940 Indication: osteopenia; prior fracture; Referring Provider: MAHOGANY WHELAN Study: Bone densitometry was performed. Exam Date: December 13, 2022 Accession number: [id number] Bone Density: Region BMD T-score Z-score Classification AP Spine(L1, L2, L3) 1.048 0.3 2.9 Normal Femoral Neck (Right) 0.628 -2.0 0.3 Osteopenia Total Hip (Right) 0.652 -2.4 -0.3 Osteopenia Total Forearm (Left) 0.441 -2.6 0.5 Osteoporosis 1/3 Forearm (Left) 0.582 -1.9 1.3 Osteopenia UD Forearm (Left) 0.306 -2.4 -0.1 Osteopenia World Health Organization criteria for BMD impression classify patients as: Normal (T-score at or above -1.0), Osteopenia (T-score between -1.0 and -2.5), or Osteoporosis (T-score at or below -2.5). 10-year Fracture Risk: FRAX not reported because: Prior hip or vertebral fracture Previous Exams: -- Region Exam Age BMD T-score BMD Change BMD Change Date g/cm2 vs Baseline vs Previous -- AP Spine (L1-L3) 12/13/2022 82 1.048 0.3 -0.139 (-11.7%)# -0.139 (-11.7%)# 02/20/2008 67 1.187 1.5 Total Hip(Right) 12/13/2022 82 0.652 -2.4 -0.023 (-3.4%)# -0.023 (-3.4%)# 07/22/2020 79 0.675 -2.2 -- *Denotes significance at 95% confidence level, LSC for AP Spine = 0.022 g/cm2, LSC for Total Hip = 0.027 g/cm2 # Denotes dissimilar scan types or analysis methods Impression: The patient has low bone mass, based on the Right Total Hip T-score. The patient has risk factors, including: previous fracture. No significant bone loss was observed. Discussion: INCREASED RISK OF FRACTURE DUE TO HISTORY OF FRACTURE. The patient's previous fracture puts the patient at high risk of a future fracture. In untreated patients, the risk of osteoporotic fracture increases approximately two-fold for each 1.0 SD decrease in T-score. Low bone density is not the only risk factor for fracture; also consider factors such as patient's age, frailty or poor health, risk of falling, risk of injury, previous osteoporotic fracture, family history of osteoporosis, cigarette smoking, low body weight, etc. Not everyone with a low trauma fracture has osteoporosis; osteomalacia and other metabolic bone disorders should also be considered. Patients who have osteoporosis should be evaluated for specific diseases and conditions (secondary causes) that may cause or contribute to bone loss and fracture risk. National Osteoporosis Foundation (NOF) recommends pharmacologic intervention for patients with a prior hip or vertebral fracture regardless of BMD T-score. The patient should follow a healthful lifestyle (good nutrition with adequate calcium and vitamin D, and appropriate weight-bearing exercise). Follow-Up: Consider a repeat BMD and Vertebral Fracture Assessment (VFA) exam in 2 years or sooner if medically necessary, to reassess this patient's status. Reported by: CLAUDETTE MATUTE M.D. on 12/13/2022 11:19:00 AM.
== END ==
PROVIDERS: PCP Internal Medicine; Referring Provider Internal Medicine; Visit Provider Internal Medicine
DX: M85.851 Other specified disorders of bone density and structure, right thigh; Z78.0 Asymptomatic menopausal state; Z90.710 Acquired absence of both cervix and uterus
CPT/HCPCS: 77080; 77081

== ENCOUNTER 2022-12-20 09:12 | Emergency (ER) | payer MEDICARE, SELFPAY ==
[2022-12-20] VITALS (22 sets, daily range): BP systolic 88–132; BP diastolic 53–101; PULSE 85–128; RESP 10–29; TEMP 37; O2SAT 95–99; BMI 21.3
--- NOTE | 2022-12-20 09:47 | DI.CT.S_ITS ---
PROCEDURE: CT HEAD/BRAIN WO CON INDICATIONS: hit head on eliquis TECHNIQUE: Noncontrast 4.5 mm thick angled axial sections acquired from the foramen magnum to the vertex, with coronal and sagittal reformats. For radiation dose reduction, the following was used: automated exposure control, adjustment of mA and/or kV according to patient size. COMPARISON: [facility], CT, HEAD WITHOUT CONTRAST, 04/13/2015, 8:36. FINDINGS: Image quality: Excellent. CSF spaces: Basal cisterns are patent. No extra-axial fluid collections. The ventricles are symmetric in size and shape. Brain: No intracranial bleeds or masses. There is cerebral volume loss for age, with resultant ventricular and sulcal prominence. There are periventricular and deep white matter chronic small vessel ischemic changes. There is intracranial internal carotid artery atherosclerosis. Skull and face: Calvarium and visualized facial bones appear intact, without suspicious lesions. Sinuses: Visualized sinuses and mastoids are clear. IMPRESSION: 1. No CT evidence of acute intracranial abnormalities. No acute skull fracture. Dictated by: Graham Schultz M.D. on 12/20/2022 at 10:05 Approved by: Graham Schultz M.D. on 12/20/2022 at 10:06
--- NOTE | 2022-12-20 09:47 | DI.RAD.S_ITS ---
PROCEDURE: XR CHEST 1V INDICATIONS: chest pain TECHNIQUE: One view of the chest was acquired. COMPARISON: [facility], CR, XR CHEST 1V, 03/26/2022, 13:30. FINDINGS: Surgical changes and devices: None. Lungs and pleura: Lungs are clear. Calcified granulomata are consistent with chronic granulomatous disease. No pleural effusions or pneumothorax. Mediastinum: Mediastinal contours appear normal. Heart size is normal. Bones and chest wall: No suspicious bony lesions. Overlying soft tissues appear unremarkable. IMPRESSION: No evidence acute pulmonary process. Dictated by: Luis Mayo M.D. on 12/20/2022 at 10:21 Approved by: Luis Mayo M.D. on 12/20/2022 at 10:23
[2022-12-20 09:55] LABS: INR 1.7 (0.9-1.3); Prothrombin Time 19.2 SECONDS (10.1-12.7)
[2022-12-20 09:57] LABS: PTT Partial Thromboplastin Tim 32 SECONDS (26-36)
[2022-12-20 09:59] LABS: Add Manual Diff / Slide Review NO; Basophils Absolute Auto 0 /uL (0-100); Basophils Percent Auto 0.6 % (0-2); Eosinophils Absolute Auto 0 /uL (0-450); Eosinophils Percent Auto 0.1 % (2-4); Hematocrit 40.6 % (36-46); Hemoglobin 13.9 g/dL (12.0-16.0); Lymphocytes Absolute Auto 1900 /uL (1100-4500); Lymphocytes Percent Auto 22.8 % (25-40); Mean Corpuscular HGB Conc 34.2 % (30-36); Mean Corpuscular Hemoglobin 30.4 PG (26-34); Monocytes Absolute Auto 1100 /uL (0-900); Monocytes Percent Auto 13.9 % (3-14); Neutrophils Absolute Auto 5200 /uL (1500-7000); Neutrophils Percent Auto 62.6 % (50-75); Platelet Count 307 X10^3/uL (150-400); Red Blood Cell Count 4.57 X10^6/uL (4.0-5.2); Red Cell Distribution Width 13.3 % (11.6-14.8); White Blood Cell Count 8.2 X10^3/uL (4.5-11.0)
[2022-12-20 10:01] LABS: Alanine Aminotransferase 25 IU/L (<35); Albumin 4.2 g/dL (3.5-5.0); Albumin Globulin Ratio 1.2 (1.0-2.8); Alkaline Phosphatase 85 U/L (38-126); Aspartate Aminotransferase 39 IU/L (14-36); BUN Creatinine Ratio 22.8 (6-22); Bilirubin Total 0.4 mg/dL (0.2-1.3); Blood Urea Nitrogen 13 mg/dL (7-17); Calcium 8.7 mg/dL (8.4-10.2); Carbon Dioxide 23 mmol/L (22-32); Chloride 100 mmol/L (98-107); Creatine Kinase 75 U/L (30-135); Estimated Glomerular Filt Rate > 60 mL/min (>60); Globulin 3.5 g/dL (1.7-4.1); Glucose 117 mg/dL (80-110); HEMOLYSIS 23 (0-50); Lipase 80 U/L (23-300); Magnesium 1.9 mg/dL (1.6-2.3); Potassium 4.1 mmol/L (3.4-5.1); Sodium 135 mmol/L (137-145); Total Protein 7.7 g/dL (6.3-8.2)
[2022-12-20 10:11] LABS: Troponin I < 0.012 ng/mL (0.01-0.034)
[2022-12-20] MEDS: dilTIAZem CD 120 MG CAP PO (11:01)
--- NOTE | 2022-12-20 11:57 | DI.CT.S_ITS ---
PROCEDURE: CT ANGIO CHEST PE PROTOCOL INDICATIONS: Dyspnea TECHNIQUE: After the administration of intravenous contrast, 2 mm thick sections acquired from the pulmonary apices to the posterior costophrenic angles. 3-dimensional maximum intensity projection (MIP) coronal and sagittal reformats were then acquired through the thorax. For radiation dose reduction, the following was used: automated exposure control, adjustment of mA and/or kV according to patient size. COMPARISON: [facility], CT, PE STUDY (CTA CHEST), 09/12/2015, 13:17. FINDINGS: Image quality: Excellent. Pulmonary arteries: Pulmonary arteries are normal in size, and demonstrate no intraluminal filling defects to suggest central pulmonary embolism. Lungs and pleura: Lungs are clear. No pleural effusions or pneumothorax. Central and peripheral airways are patent. Multiple calcified granulomata, right lung. No new or increasing non calcified pulmonary nodules. Mediastinum: Heart size is normal, without pericardial effusion. No mediastinal or hilar adenopathy. Thoracic aorta is normal in caliber and enhancement. Esophagus is normal in caliber, without hiatal hernia. Bones and chest wall: No suspicious bony lesions. Ribs and thoracic spine appear intact throughout. Old mild inferior endplate compression T11. Thyroid gland is unremarkable. No axillary or supraclavicular adenopathy. Abdomen: Visualized upper abdominal solid organs appear normal in the early arterial phase of enhancement. IMPRESSION: 1. No acute pulmonary emboli. 2. No acute pulmonary process. 3. Chronic granulomatous disease. 4. Old compression fracture. Dictated by: Luis Mayo M.D. on 12/20/2022 at 13:10 Approved by: Luis Mayo M.D. on 12/20/2022 at 13:21
[2022-12-20] MEDS: SODIUM CHLORIDE 0.9% 500 ML 1000 ML IV ×2 (12:09→14:21)
--- NOTE | 2022-12-20 12:26 | ED_ITS ---
HPI - Arrhythmia/Palpitations General Chief Complaint: Arrhythmia/Palpitations Stated Complaint: Covid+, LOC, Fell in shower Time Seen by Provider: 12/20/22 10:18 Source: patient Mode of arrival: Wheelchair History of Present Illness HPI narrative: Patient here for feeling short of breath and passing out in the bathroom today. Patient tested positive for COVID this early week. Has had mild cough but no fever chills. Not requiring supplemental oxygen. Patient is not taking Paxlovid due to her atrial fibrillation history, she is on flecainide as well as Cardizem. She just met with Dr. Lancaster, [facility] EP Cardiology w wilver last 2 weeks. Recommended to have ablation but patient states can not do it this summer. Patient does not not not want to be cardioverted. She is in atrial flutter/atrial fibrillation. She is on Eliquis. She is in no distress. Speak in full sentences. I will reach out to her cardiologists, dr modi and dr lancaster. Patient states she is felt intermittent AFib in the past 2 weeks. Ever since she saw Dr. Lancaster's office 2 weeks ago. Related Data Home Medications Medication Instructions Recorded Confirmed ESTROGENS CONJUGATED VAG - 1 dose vaginal ##0 04/19/09 09/20/22 (Premarin) acetaminophen 650 mg 650 mg PO DAILY PRN 09/15/21 09/20/22 tablet,extended release (Tylenol 8 Hour) diltiazem HCl 120 mg 120 mg PO .nightly 09/15/21 09/20/22 capsule,extended release 24 hr flecainide 150 mg tablet 75 mg PO BID 09/15/21 09/20/22 metronidazole 0.75 % topical cream 1 applic topical BID 09/15/21 09/20/22 Previous Rx's Medication Instructions Recorded apixaban 5 mg tablet (Eliquis) 5 mg PO BID #180 tabs 02/22/22 ezetimibe 10 mg tablet 10 mg PO BEDTIME #90 tabs 05/31/22 pravastatin 10 mg tablet 10 mg PO BEDTIME #90 tabs 06/14/22 methocarbamol 500 mg tablet 500 mg PO TID #30 tabs 07/26/22 gabapentin 100 mg capsule 100 mg PO BEDTIME #30 caps 09/20/22 hydrocodone 5 mg-acetaminophen 325 1 tab PO Q6H PRN pain #20 tabs 09/20/22 mg tablet hydrocodone 5 mg-acetaminophen 325 1 tab PO Q6H PRN pain #20 tabs 09/20/22 mg tablet hydrocodone 5 mg-acetaminophen 325 1 tab PO Q6H PRN pain #20 tabs 09/20/22 mg tablet cyclobenzaprine 10 mg tablet 10 mg PO TID PRN muscle spasm #30 11/13/22 tabs losartan 25 mg tablet 25 mg PO DAILY #90 tabs 12/13/22 diltiazem HCl 30 mg tablet 30 mg PO DAILY PRN A-fib #30 tabs 12/17/22 Allergies Allergy/AdvReac Type Severity Reaction Status Date / Time metoprolol Allergy Mild ITCHING Verified 12/20/22 10:06 atorvastatin AdvReac Intermediate aches Verified 12/20/22 10:06 codeine AdvReac Intermediate N/V Verified 12/20/22 10:06 pravastatin AdvReac Intermediate aches Verified 12/20/22 10:06 rosuvastatin AdvReac Intermediate aches Verified 12/20/22 10:06 Review of Systems Review of Systems Narrative: GENERAL: negative chills, fatigue, malaise, fever, sweats. HEENT: negative sinus pain, ear pain, sore throat RESPIRATORY: Positive dyspnea, cough CARDIOVASCULAR: negative chest pain, positive palpitations GASTROINTESTINAL: negative nausea, vomiting, abdominal pain : negative dysuria, frequency, hematuria MUSCULOSKELETAL: negative muscle or bony pain SKIN: negative rash, skin lesions NEUROLOGIC: negative weakness, numbness Patient History Medical History Age-related osteoporosis without current pathological fracture Atrial fibrillation Chronic anticoagulation Chronic back pain Chronic, continuous use of opioids Essential hypertension Fecal incontinence (~2018) Generalized anxiety disorder Left carotid stenosis Left cervical radiculopathy Lumbar back pain (~1986) Mixed hyperlipidemia Paroxysmal atrial fibrillation Primary osteoarthritis involving multiple joints Rheumatic fever (~194) Rosacea (~2017) Wears glasses Surgical History Anesthesia History of back surgery (~1986) History of hip surgery (~2017) History of shoulder surgery No pertinent past surgical history Status post right partial knee replacement (~2016) Family History Father Accident Mother History of colon resection Grandfather Cancer Grandmother History of heart disease Grandfather History of heart disease ETOH abuse Grandmother History of heart disease Social History lives independently: Yes Smoking Status: Former smoker Smoking Status: Former smoker alcohol intake frequency: a few times a week Substance Use Type: does not use Exam Narrative Exam Narrative: GENERAL: in no distress, not toxic not dyspneic HEAD: Normocephalic. EYES: Pupils equal round ENT: Mucous membranes moist. NECK: Trachea midline. CARDIOVASCULAR: Irregular irregular rate and rhythm without murmurs, tachycardic RESPIRATORY: Clear to auscultation. Breath sounds equal bilaterally. No wheezes, rales, or rhonchi. Speaking full sentences no respiratory distress clear and equal lung sounds GASTROINTESTINAL: Abdomen soft, non-tender EXTREMITIES: No gross deformities. BACK: No flank tenderness. NEURO: AOx4. SKIN: Warm and dry PSYCH: Not anxious, is cooperative Initial Vital Signs Initial Vital Signs: Vital Signs Temperature 98.6 F 12/20/22 09:12 Pulse Rate 111 H 12/20/22 09:12 Respiratory Rate 16 12/20/22 09:12 Blood Pressure 132/101 H 12/20/22 09:12 Pulse Oximetry 97 12/20/22 09:12 Oxygen Delivery Method Room Air 12/20/22 09:12 Course Orders Ordered: Discontinued Medications Diltiazem HCl (Diltiazem Cd 120 Mg Cap) 120 mg PO NOW ONE Stop: 12/20/22 10:43 Last Admin: 12/20/22 11:01 Dose: 120 mg Documented By: MAXIMILIAN Sodium Chloride (Normal Saline 0.9%) 500 mls @ 1,000 mls/hr IV BOLUS ONE Stop: 12/20/22 12:26 Last Infusion: 12/20/22 12:40 Dose: 0 mls/hr Documented By: Admin: 12/20/22 12:09 Dose: 1,000 mls/hr Documented By: MAXIMILIAN Sodium Chloride (Normal Saline 0.9%) 500 mls @ 1,000 mls/hr IV BOLUS ONE Stop: 12/20/22 14:49 Last Infusion: 12/20/22 14:56 Dose: 0 mls/hr Documented By: Admin: 12/20/22 14:21 Dose: 1,000 mls/hr Documented By: CONNOR Vital Signs Vital signs: Vital Signs - 8 hr 12/20/22 09:30 12/20/22 09:31 12/20/22 09:31 Pulse Rate 110 H 119 H Respiratory Rate 29 H Blood Pressure 111/58 L Pulse Oximetry 97 97 Oxygen Delivery Method Room Air 12/20/22 10:00 12/20/22 10:30 12/20/22 11:00 Pulse Rate 117 H 115 H 110 H Respiratory Rate 22 27 H 18 Blood Pressure Pulse Oximetry 98 99 97 Oxygen Delivery Method 12/20/22 11:30 12/20/22 11:55 12/20/22 11:55 Pulse Rate 111 H 113 H Respiratory Rate 16 19 Blood Pressure 108/63 Pulse Oximetry 97 96 Oxygen Delivery Method 12/20/22 11:58 12/20/22 11:58 12/20/22 12:00 Pulse Rate 115 H Respiratory Rate 19 Blood Pressure 104/60 89/53 L Pulse Oximetry 97 Oxygen Delivery Method 12/20/22 12:00 12/20/22 12:04 12/20/22 12:04 Pulse Rate 112 H 117 H Respiratory Rate 15 20 Blood Pressure 95/56 L Pulse Oximetry 96 96 Oxygen Delivery Method 12/20/22 12:31 12/20/22 12:33 12/20/22 12:33 Pulse Rate 103 H 117 H Respiratory Rate 16 Blood Pressure 118/57 L Pulse Oximetry 95 99 Oxygen Delivery Method 12/20/22 13:00 12/20/22 13:00 12/20/22 13:30 Pulse Rate 116 H Respiratory Rate 16 Blood Pressure 106/59 L 106/63 Pulse Oximetry 98 Oxygen Delivery Method 12/20/22 13:30 12/20/22 14:00 12/20/22 14:00 Pulse Rate 113 H 128 H Respiratory Rate 17 19 Blood Pressure 88/61 L Pulse Oximetry 97 97 Oxygen Delivery Method 12/20/22 14:30 12/20/22 14:30 12/20/22 15:00 Pulse Rate 102 H Respiratory Rate 10 L Blood Pressure 96/55 L 108/53 L Pulse Oximetry 99 Oxygen Delivery Method 12/20/22 15:00 12/20/22 15:30 12/20/22 15:30 Pulse Rate 98 H 85 Respiratory Rate 16 18 Blood Pressure 114/58 L Pulse Oximetry 96 96 Oxygen Delivery Method 12/20/22 16:00 12/20/22 16:00 12/20/22 16:30 Pulse Rate 92 H Respiratory Rate 18 Blood Pressure 129/59 L 122/58 L Pulse Oximetry 96 Oxygen Delivery Method 12/20/22 16:30 Pulse Rate 90 Respiratory Rate 16 Blood Pressure Pulse Oximetry 96 Oxygen Delivery Method MDM - Arrhythmia/Palpitations Lab Data 12/20/22 09:30 12/20/22 09:30 Labs: Lab Results 12/20/22 12/20/22 12/20/22 Range/Units 09:30 09:30 09:30 WBC 8.2 (4.5-11.0) X10^3/uL RBC 4.57 (4.0-5.2) X10^6/uL Hgb 13.9 (12.0-16.0) g/dL Hct 40.6 (36-46) % MCV 89.0 (80-100) fL MCH 30.4 (26-34) PG MCHC 34.2 (30-36) % RDW 13.3 (11.6-14.8) % Plt Count 307 (150-400) X10^3/uL Neut % (Auto) 62.6 (50-75) % Lymph % (Auto) 22.8 L (25-40) % Callaway % (Auto) 13.9 (3-14) % Eos % (Auto) 0.1 L (2-4) % Baso % (Auto) 0.6 (0-2) % Neut # (Auto) 5200 (5908-0770) /uL Lymph # (Auto) 1900 (3615-3647) /uL Callaway # (Auto) 1100 H (0-900) /uL Eos # (Auto) 0 (0-450) /uL Baso # (Auto) 0 (0-100) /uL PT 19.2 H (10.1-12.7) SECONDS INR 1.7 H (0.9-1.3) APTT 32 (26-36) SECONDS Sodium 135 L (137-145) mmol/L Potassium 4.1 (3.4-5.1) mmol/L Chloride 100 (98-107) mmol/L Carbon Dioxide 23 (22-32) mmol/L BUN 13 (7-17) mg/dL Creatinine 0.57 (0.52-1.04) mg/dL Estimated GFR > 60 (>60) mL/min BUN/Creatinine Ratio 22.8 H (6-22) Glucose 117 H (80-110) mg/dL Calcium 8.7 (8.4-10.2) mg/dL Magnesium 1.9 (1.6-2.3) mg/dL Total Bilirubin 0.4 (0.2-1.3) mg/dL AST 39 H (14-36) IU/L ALT 25 (<35) IU/L Alkaline Phosphatase 85 (38-126) U/L Total Creatine Kinase 75 (30-135) U/L Troponin I < 0.012 (0.01-0.034) ng/mL Total Protein 7.7 (6.3-8.2) g/dL Albumin 4.2 (3.5-5.0) g/dL Globulin 3.5 (1.7-4.1) g/dL Albumin/Globulin Ratio 1.2 (1.0-2.8) Lipase 80 (23-300) U/L Imaging Data Chest x-ray: Radiologist's Impresson: [address] [id number] XRay Report Signed Patient: Sandra Koo MR#: [id number] : 1940 Acct:[id number] Age/Sex: 82 / F Date of Service: 12/20/22 Loc: ED Accession Number: [id number] ?? Procedure: XR chest 1V Ordering Provider: Raphael Kennedy MD PROCEDURE:? XR CHEST 1V ? INDICATIONS:? chest pain ? TECHNIQUE:? One view of the chest was acquired.? ? COMPARISON:? [facility], CR, XR CHEST 1V, 03/26/2022, 13:30. ? FINDINGS:? ? Surgical changes and devices:? None.? ? Lungs and pleura:? Lungs are clear.? Calcified granulomata are consistent with chronic granulomatous disease.? No pleural effusions or pneumothorax.? ? Mediastinum:? Mediastinal contours appear normal.? Heart size is normal.? ? Bones and chest wall:? No suspicious bony lesions.? Overlying soft tissues appear unremarkable.? ? IMPRESSION:? No evidence acute pulmonary process. ? ? ? Dictated by: Luis Mayo M.D. on 12/20/2022 at 10:21 ? ? Approved by: Luis Mayo M.D. on 12/20/2022 at 10:23 ? CT scan - head: Radiologist's Impresson: [address] [address] [address] Scan Report Signed Patient: Sandra Koo MR#: [id number] : 1940 Acct:[id number] Age/Sex: 82 / F Date of Service: 12/20/22 Loc: ED Accession Number: [id number] ?? Procedure: CT head/brain wo con Ordering Provider: Raphael Kennedy MD PROCEDURE:? CT HEAD/BRAIN WO CON ? INDICATIONS:? hit head on eliquis ? TECHNIQUE:? Noncontrast 4.5 mm thick angled axial sections acquired from the foramen magnum to the vertex, with coronal and sagittal reformats.? For radiation dose reduction, the following was used:? automated exposure control, adjustment of mA and/or kV according to patient size.? ? COMPARISON:? [facility], CT, HEAD WITHOUT CONTRAST, 04/13/2015, 8:36. ? FINDINGS:? Image quality:? Excellent.? ? CSF spaces:? Basal cisterns are patent.? No extra-axial fluid collections.? The ventricles are symmetric in size and shape.? ? Brain:? No intracranial bleeds or masses.? There is cerebral volume loss for age, with resultant ventricular and sulcal prominence.? There are periventricular and deep white matter chronic small vessel ischemic changes.? There is intracranial internal carotid artery atherosclerosis.? ? Skull and face:? Calvarium and visualized facial bones appear intact, without suspicious lesions.? ? Sinuses:? Visualized sinuses and mastoids are clear.? ? IMPRESSION:? 1. No CT evidence of acute intracranial abnormalities.? No acute skull fracture.? ? ? Dictated by: Graham Schultz M.D. on 12/20/2022 at 10:05 ? ? Approved by: Graham Schultz M.D. on 12/20/2022 at 10:06 ? MDM Narrative Medical decision making narrative: Patient here for feeling short of breath and passing out in the bathroom today. Patient tested positive for COVID this early week. Has had mild cough but no fever chills. Not requiring supplemental oxygen. Patient is not taking Paxlovid due to her atrial fibrillation history, she is on flecainide as well as Cardizem. She just met with Dr. Lancaster, [facility] EP Cardiology within last 2 weeks. Recommended to have ablation but patient states can not do it this summer. Patient does not not not want to be cardioverted. She is in atrial flutter/atrial fibrillation. She is on Eliquis. She is in no distress. Speak in full sentences. I will reach out to her cardiologists, dr modi and dr lancaster. Patient states she is felt intermittent AFib in the past 2 weeks. Ever since she saw Dr. Lancaster's office 2 weeks ago. After history and exam CBC CMP troponin EKG chest x-ray, CT head CT chest [facility] CC: Palpitations/syncope Complicating co-morbidities: AFib on Eliquis/current COVID infection Data collected from: Patient Medical records reviewed: No recent visit for this complaint Differential considered: Includes but not limited to pneumonia AFib RVR pulmonary embolism Exam documented above, pertinent findings include: Irregularly irregular heart rate Lab Test results independently reviewed as above. Pertinent findings: WBC 8.2 hemoglobin 13.9 INR 1.7 sodium 135 potassium 4.1 GFR greater than 60 glucose 117 AST 39 troponin less than 0.012 lipase 80 Independently reviewed EKG atrial flutter/AFib rate 105 no RVR Repeat EKG at 4:12 p.m.. Atrial fibrillation rate improved at 90 Imaging studies independently reviewed: Chest x-ray no acute finding CT head no acute finding CT chest no acute finding Consultations: 10:30 a.m., I spoke with patient's Cardiology team, Dr. Sanders and Dr. Lancaster, no Cardizem drip at this time. Patient may take extra dose of her Cardizem 120 mg extended release now. No criteria for admission. Patient does not want to be cardioverted. Treatments: Normal saline Cardizem extended release Re-evaluations: 12:56 p.m. Reviewed results with patient. CT chest is pending results, she does not not want be cardioverted. She understands she would go home with AFib actively with current heart rate, however she does not want to be cardioverted because she is not sure if it will come back again tomorrow. She does not want to go through the procedure again. 4:53 p.m.. Patient feeling much better. Heart rate now 90. However patient still in atrial fibrillation. Blood pressure is stable. 122/58 patient desires discharge home. Discussion: Appropriate for discharge home. Patient did not tolerate taking double the dose of Cardizem long-acting. It did drop her blood pressure. She is not going to continue that at home. While here her internal wholesaler office in formed her that she has appointment set up for her. COVID infection likely exacerbated her AFib possibly. I did review with her cardiology team. At this time no admission criteria. Patient refuses cardioversion. She does understand she may not convert at home. But she is on anticoagulation. Return precautions reviewed. She desires discharge home. Diagnosis: COVID/atrial fibrillation Discharge Plan Departure Patient Disposition: Home Clinical Impression: Atrial fibrillation Instructions: DI for Atrial Fibrillation Activity Restrictions/Additional Instructions: Please continue home medications. Return if worse if any questions or concerns. Return if you change your mind to have cardioversion. See your internal wholesaler as scheduled. Return if worse if any questions or concerns Prescriptions: No Action acetaminophen [Tylenol 8 Hour] 650 mg tablet extended release 650 mg PO DAILY PRN ESTROGENS CONJUGATED VAG - (Premarin) 1 dose Vaginal Qty: 0 Eliquis 5 mg tablet 5 mg PO BID Qty: 180 3RF ezetimibe 10 mg tablet 10 mg PO BEDTIME Qty: 90 3RF losartan 25 mg tablet 25 mg PO DAILY Qty: 90 3RF diltiazem HCl 30 mg tablet 30 mg PO DAILY PRN (Reason: A-fib) Qty: 30 6RF diltiazem HCl 120 mg capsule,extended release 24hr 120 mg PO .nightly flecainide 150 mg tablet 75 mg PO BID metronidazole 0.75 % cream 1 applic topical BID Rx Instructions: on face methocarbamol 500 mg tablet 500 mg PO TID Qty: 30 1RF Rx Instructions: 1-2 tablets three times daily as needed for spasms/pain pravastatin 10 mg tablet 10 mg PO BEDTIME Qty: 90 3RF hydrocodone-acetaminophen 5-325 mg tablet 1 tab PO Q6H PRN (Reason: pain) Qty: 20 0RF hydrocodone-acetaminophen 5-325 mg tablet 1 tab PO Q6H PRN (Reason: pain) Qty: 20 0RF hydrocodone-acetaminophen 5-325 mg tablet 1 tab PO Q6H PRN (Reason: pain) Qty: 20 0RF gabapentin 100 mg capsule 100 mg PO BEDTIME Qty: 30 5RF cyclobenzaprine 10 mg tablet 10 mg PO TID PRN (Reason: muscle spasm) Qty: 30 0RF Referrals: Drew Adams MD [Primary Care Provider] - Stand Alone Forms: Patient Portal/API
--- NOTE | 2022-12-20 13:57 | PC.NURSE ---
RACE BOARD ATTENDANT note: after confirming with provider this RACE BOARD ATTENDANT took the pt. 2 pkg. saltine crackers, 1/2 egg salad sandwich, applesauce and breakfast bar.
== END 2022-12-20 17:04 | disposition home or self-care (01) ==
PROVIDERS: Emergency Provider Emergency Medicine; PCP Internal Medicine
DX: I48.91 Unspecified atrial fibrillation (principal); Z79.01 Long term (current) use of anticoagulants; U07.1 COVID-19; R07.9 Chest pain, unspecified
CPT/HCPCS: 36415; 70450; 71045; 71275; 80053; 82550; 83690; 83735; 84484; 85025; 85610; 85730; 93005; 96360; 96361; 99284; Q9967

== ENCOUNTER → 2023-02-14 08:57 | Outpatient (CLI) | payer MEDICARE, SELFPAY ==
[2023-02-14 09:53] LABS: Add Manual Diff / Slide Review NO; Basophils Absolute Auto 0 /uL (0-100); Basophils Percent Auto 0.4 % (0-2); Eosinophils Absolute Auto 0 /uL (0-450); Eosinophils Percent Auto 0.4 % (2-4); Hematocrit 38.5 % (36-46); Hemoglobin 13.1 g/dL (12.0-16.0); Lymphocytes Absolute Auto 1900 /uL (1100-4500); Lymphocytes Percent Auto 21.3 % (25-40); Mean Corpuscular HGB Conc 34.1 % (30-36); Mean Corpuscular Hemoglobin 30.2 PG (26-34); Mean Corpuscular Volume 88.5 fL (80-100); Monocytes Absolute Auto 700 /uL (0-900); Monocytes Percent Auto 8.3 % (3-14); Neutrophils Absolute Auto 6100 /uL (1500-7000); Neutrophils Percent Auto 69.6 % (50-75); Platelet Count 350 X10^3/uL (150-400); Red Blood Cell Count 4.35 X10^6/uL (4.0-5.2); Red Cell Distribution Width 13.9 % (11.6-14.8); White Blood Cell Count 8.8 X10^3/uL (4.5-11.0)
[2023-02-14 11:31] LABS: BUN Creatinine Ratio 19.7 (6-22); Blood Urea Nitrogen 15 mg/dL (7-17); Calcium 9.3 mg/dL (8.4-10.2); Carbon Dioxide 28 mmol/L (22-32); Chloride 101 mmol/L (98-107); Cholesterol 239 mg/dL (140-199); Estimated Glomerular Filt Rate > 60 mL/min (>60); Glucose 93 mg/dL (80-110); HDL Cholesterol 53 mg/dL (40-60); HEMOLYSIS < 15 (0-50); LDL Cholesterol Calculated 158 mg/dL (<100); Potassium 4.8 mmol/L (3.4-5.1); Sodium 136 mmol/L (137-145); Triglycerides 141 mg/dL (35-150)
== END ==
PROVIDERS: PCP Internal Medicine; Referring Provider Internal Medicine Cardiovascular Disease; Visit Provider Internal Medicine Cardiovascular Disease
DX: I10 Essential (primary) hypertension (principal); Z79.01 Long term (current) use of anticoagulants; E78.5 Hyperlipidemia, unspecified
CPT/HCPCS: 36415; 80048; 80061; 85025

== ENCOUNTER → 2023-08-08 09:38 | Outpatient (CLI) | payer MEDICARE, SELFPAY ==
[2023-08-08 10:24] LABS: Hematocrit 37.5 % (36-46); Hemoglobin 12.7 g/dL (12.0-16.0); Mean Corpuscular HGB Conc 33.9 % (30-36); Mean Corpuscular Hemoglobin 30.3 PG (26-34); Mean Corpuscular Volume 89.5 fL (80-100); Platelet Count 315 X10^3/uL (150-400); Red Blood Cell Count 4.19 X10^6/uL (4.0-5.2); Red Cell Distribution Width 13.6 % (11.6-14.8); White Blood Cell Count 7.5 X10^3/uL (4.5-11.0)
[2023-08-08 10:48] LABS: Alanine Aminotransferase 18 IU/L (<35); Albumin 3.8 g/dL (3.5-5.0); Albumin Globulin Ratio 1.2 (1.0-2.8); Alkaline Phosphatase 72 U/L (38-126); Aspartate Aminotransferase 27 IU/L (14-36); BUN Creatinine Ratio 17.6 (6-22); Bilirubin Total 0.5 mg/dL (0.2-1.3); Blood Urea Nitrogen 12 mg/dL (7-17); Carbon Dioxide 30 mmol/L (22-32); Chloride 103 mmol/L (98-107); Cholesterol 238 mg/dL (140-199); Estimated Glomerular Filt Rate > 60 mL/min (>60); Globulin 3.2 g/dL (1.7-4.1); Glucose 90 mg/dL (80-110); HDL Cholesterol 62 mg/dL (40-60); HEMOLYSIS < 15 (0-50); LDL Cholesterol Calculated 151 mg/dL (<100); Potassium 4.7 mmol/L (3.4-5.1); Sodium 137 mmol/L (137-145); Triglycerides 123 mg/dL (35-150)
== END ==
PROVIDERS: PCP Internal Medicine; Referring Provider Internal Medicine; Visit Provider Internal Medicine
DX: I48.0 Paroxysmal atrial fibrillation (principal); I10 Essential (primary) hypertension; E78.2 Mixed hyperlipidemia
CPT/HCPCS: 36415; 80053; 80061; 85027

== ENCOUNTER → 2024-10-05 07:15 | Outpatient (CLI) | payer MEDICARE, SELFPAY ==
[2024-10-05 09:04] LABS: BUN Creatinine Ratio 24.6 (6-22); Blood Urea Nitrogen 16 mg/dL (7-17); Calcium 8.9 mg/dL (8.4-10.2); Carbon Dioxide 28 mmol/L (22-32); Chloride 103 mmol/L (98-107); Estimated Glomerular Filt Rate > 60 mL/min (>60); Glucose 94 mg/dL (70-99); HEMOLYSIS < 15 (0-50); Magnesium 2.1 mg/dL (1.6-2.3); Potassium 4.7 mmol/L (3.4-5.1); Sodium 137 mmol/L (137-145)
== END ==
LOC: LAB 07:18
PROVIDERS: PCP Internal Medicine; Referring Provider Nurse Practitioner Acute Care; Visit Provider Nurse Practitioner Acute Care
DX: I48.0 Paroxysmal atrial fibrillation (principal)
CPT/HCPCS: 36415; 80048; 83735

== ENCOUNTER → 2024-11-16 16:19 | Outpatient (CLI) | payer MEDICARE, SELFPAY ==
[2024-11-16 16:56] LABS: Hemoglobin 11.8 g/dL (12.0-16.0); Mean Corpuscular HGB Conc 34.7 % (30-36); Mean Corpuscular Volume 89.4 fL (80-100); Platelet Count 299 X10^3/uL (150-400); White Blood Cell Count 6.9 X10^3/uL (4.5-11.0)
[2024-11-16 17:27] LABS: Aspartate Aminotransferase 30 IU/L (14-36); BUN Creatinine Ratio 28.1 (6-22); Blood Urea Nitrogen 18 mg/dL (7-17); Calcium 8.9 mg/dL (8.4-10.2); Carbon Dioxide 26 mmol/L (22-32); Chloride 102 mmol/L (98-107); Cholesterol 189 mg/dL (140-199); Estimated Glomerular Filt Rate > 60 mL/min (>60); Glucose 88 mg/dL (70-99); HDL Cholesterol 39 mg/dL (40-60); HEMOLYSIS < 15 (0-50); LDL Cholesterol Calculated 96 mg/dL (<100); Magnesium 2.1 mg/dL (1.6-2.3); Potassium 3.9 mmol/L (3.4-5.1); Sodium 135 mmol/L (137-145); Triglycerides 268 mg/dL (35-150)
== END ==
LOC: LAB 16:20
PROVIDERS: PCP Internal Medicine; Referring Provider Internal Medicine; Visit Provider Internal Medicine
DX: E61.2 Magnesium deficiency (principal); I48.0 Paroxysmal atrial fibrillation; E78.2 Mixed hyperlipidemia
CPT/HCPCS: 36415; 80048; 80061; 83735; 84450; 85027

== ENCOUNTER → 2024-11-23 09:56 | Outpatient (CLI) | payer MEDICARE, SELFPAY ==
[2024-11-23 10:20] LABS: Add Manual Diff / Slide Review NO; Basophils Absolute Auto 0 /uL (0-100); Eosinophils Absolute Auto 100 /uL (0-450); Eosinophils Percent Auto 1.6 % (2-4); Hematocrit 37.5 % (36-46); Hemoglobin 12.7 g/dL (12.0-16.0); Lymphocytes Absolute Auto 1800 /uL (1100-4500); Lymphocytes Percent Auto 42.6 % (25-40); Mean Corpuscular HGB Conc 33.8 % (30-36); Mean Corpuscular Hemoglobin 30.5 PG (26-34); Mean Corpuscular Volume 90.2 fL (80-100); Monocytes Absolute Auto 300 /uL (0-900); Monocytes Percent Auto 8.1 % (3-14); Neutrophils Absolute Auto 2000 /uL (1500-7000); Neutrophils Percent Auto 46.7 % (50-75); Platelet Count 316 X10^3/uL (150-400); Red Blood Cell Count 4.16 X10^6/uL (4.0-5.2); Red Cell Distribution Width 12.9 % (11.6-14.8); White Blood Cell Count 4.2 X10^3/uL (4.5-11.0)
[2024-11-23 10:23] LABS: Reticulocyte Count, Percent 0.6 % (1.1-2.6)
[2024-11-23 10:36] LABS: HEMOLYSIS < 15 (0-50); Iron 126 ug/dL (37-170)
[2024-11-23 10:48] LABS: Percent Iron Saturation 42 % (15-50); Total Iron Binding Capacity 298 ug/dL (265-497); Transferrin 250 mg/dL (206-381)
[2024-11-23 11:11] LABS: Ferritin 50 ng/mL (11-264)
[2024-11-23 11:26] LABS: Vitamin B12 Reflex MMA if <400 288 pg/mL (239-931)
[2024-11-26 08:09] LABS: Methylmalonic Acid,Serum 183 nmol/L (0-378)
== END ==
PROVIDERS: PCP Internal Medicine; Referring Provider Internal Medicine; Visit Provider Internal Medicine
DX: D64.9 Anemia, unspecified (principal); E53.8 Deficiency of other specified B group vitamins
CPT/HCPCS: 36415; 82607; 82728; 83540; 83550; 83921; 85025; 85045

== ENCOUNTER → 2025-02-01 07:40 | Outpatient (CLI) | payer MEDICARE, SELFPAY ==
[2025-02-01 08:33] LABS: Add Manual Diff / Slide Review NO; Hematocrit 38.6 % (36-46); Hemoglobin 13.2 g/dL (12.0-16.0); Lymphocytes Absolute Auto 1800 /uL (1100-4500); Mean Corpuscular HGB Conc 34.1 % (30-36); Mean Corpuscular Hemoglobin 30.5 PG (26-34); Mean Corpuscular Volume 89.5 fL (80-100); Platelet Count 299 X10^3/uL (150-400)
[2025-02-01 09:05] LABS: Blood Urea Nitrogen 16 mg/dL (7-17); Calcium 9.0 mg/dL (8.4-10.2); Carbon Dioxide 30 mmol/L (22-32); Chloride 101 mmol/L (98-107); Estimated Glomerular Filt Rate > 60 mL/min (>60); Glucose 93 mg/dL (70-99); HEMOLYSIS < 15 (0-50); Magnesium 2.0 mg/dL (1.6-2.3); Potassium 4.6 mmol/L (3.4-5.1); Sodium 137 mmol/L (137-145)
== END ==
PROVIDERS: PCP Internal Medicine; Referring Provider Nurse Practitioner Acute Care; Visit Provider Nurse Practitioner Acute Care
DX: I48.0 Paroxysmal atrial fibrillation (principal); Z51.81 Encounter for therapeutic drug level monitoring; Z79.899 Other long term (current) drug therapy; E78.2 Mixed hyperlipidemia; I10 Essential (primary) hypertension
CPT/HCPCS: 36415; 80048; 83735; 85025

== ENCOUNTER → 2025-04-20 09:34 | Outpatient (CLI) | payer MEDICARE, SELFPAY ==
[2025-04-20 11:03] LABS: Blood Urea Nitrogen 19 mg/dL (7-17); Calcium 9.2 mg/dL (8.4-10.2); Carbon Dioxide 30 mmol/L (22-32); Chloride 102 mmol/L (98-107); Estimated Glomerular Filt Rate > 60 mL/min (>60); Glucose 100 mg/dL (70-99); HEMOLYSIS < 15 (0-50); Magnesium 2.2 mg/dL (1.6-2.3); Potassium 4.7 mmol/L (3.4-5.1); Sodium 138 mmol/L (137-145)
== END ==
PROVIDERS: PCP Internal Medicine; Referring Provider Nurse Practitioner Acute Care; Visit Provider Nurse Practitioner Acute Care
DX: Z51.81 Encounter for therapeutic drug level monitoring (principal); I48.0 Paroxysmal atrial fibrillation; Z79.899 Other long term (current) drug therapy
CPT/HCPCS: 36415; 80048; 83735